=== PATIENT | female | born 1965 | race Hispanic/Latino ===

== ENCOUNTER 2017-03-04 08:09 | Outpatient (CLI) | payer OTHER ==
[2017-03-04] MEDS ORDERED: Lidocaine 4% Topical Sol 50 ML BOT ONE (18:55)
== END 2017-03-04 08:10 | disposition home or self-care (01) ==
LOC: WCC 08:09
PROVIDERS: ATTEND Family Medicine
DX: T81.89XD Other complications of procedures, not elsewhere classified, subsequent encounter (principal)
CPT/HCPCS: 36416; 97605; J2001

== ENCOUNTER 2017-03-04 12:02 | Day surgery (SDC) | payer OTHER ==
[2017-03-04] MEDS ORDERED: PERTUZUMAB IVPB SCH (12:30)
[2017-03-04] MEDS ORDERED: Dexamethasone 10 MG in Sodium Chloride 0.9% 50 ML IVPB SCH (12:30)
[2017-03-04] MEDS ORDERED: Pertuzumab 420 MG in Sodium Chloride 0.9% 250 ML 250 ML IVPB SCH ×3 (12:30)
[2017-03-04] MEDS ORDERED: CARBOPLATIN IVPB SCH ×3 (12:30)
[2017-03-04] MEDS ORDERED: SODIUM CHLORIDE 0.9% IVPB SCH ×9 (12:30)
[2017-03-04] MEDS ORDERED: TRASTUZUMAB IVPB SCH ×3 (12:30)
[2017-03-04] MEDS ORDERED: DOCETAXEL IVPB SCH ×3 (12:30)
[2017-03-04] MEDS ORDERED: SODIUM CHLORIDE IVPB SCH (12:30)
[2017-03-04] MEDS ORDERED: Palonosetron HCl 0.25 MG in Sodium Chloride 0.9% 50 ML IVPB SCH ×3 (12:30)
[2017-03-04] MEDS ORDERED: ADMIXTURE FEE IVPB SCH (12:30)
[2017-03-04 12:42] VITALS: BP 141/67
[2017-03-04] MEDS ORDERED: Sodium Chloride 0.9% 20 ML ONE (13:53)
== END 2017-03-04 16:44 | disposition home or self-care (01) ==
LOC: ONC/OP 12:02
PROVIDERS: ATTEND Internal Medicine Hematology & Oncology
DX: Z51.11 Encounter for antineoplastic chemotherapy (principal); C50.012 Malignant neoplasm of nipple and areola, left female breast; I10 Essential (primary) hypertension; E11.40 Type 2 diabetes mellitus with diabetic neuropathy, unspecified; K21.9 Gastro-esophageal reflux disease without esophagitis; E78.5 Hyperlipidemia, unspecified; M19.90 Unspecified osteoarthritis, unspecified site; F32.9 Major depressive disorder, single episode, unspecified; F41.9 Anxiety disorder, unspecified; Z98.890 Other specified postprocedural states; Z17.1 Estrogen receptor negative status [ER-]; Z78.0 Asymptomatic menopausal state; Z79.84 Long term (current) use of oral hypoglycemic drugs; Z79.1 Long term (current) use of non-steroidal anti-inflammatories (NSAID); Z79.52 Long term (current) use of systemic steroids; Z79.899 Other long term (current) drug therapy; Z87.891 Personal history of nicotine dependence
CPT/HCPCS: 96367; 96413; 96417; A4216; J1100; J1642; J2469; J7050; J9045; J9171; J9306; J9355

== ENCOUNTER 2017-03-07 13:58 | Outpatient (CLI) | payer OTHER | END 2017-03-07 13:59 | disposition home or self-care (01) | LOC: WCC 13:58 | PROVIDERS: ATTEND Family Medicine | DX: T81.89XD Other complications of procedures, not elsewhere classified, subsequent encounter (principal) | CPT/HCPCS: 36415; 80048; 97606 ==

== ENCOUNTER 2017-03-11 10:29 | Outpatient (CLI) | payer OTHER ==
[2017-03-11] MEDS ORDERED: Sodium Chloride 0.9% 15 ML NEB ONE (17:00)
== END 2017-03-11 10:30 | disposition home or self-care (01) ==
LOC: WCC 10:29
PROVIDERS: ATTEND Family Medicine
DX: T81.89XD Other complications of procedures, not elsewhere classified, subsequent encounter (principal)
CPT/HCPCS: 87015; 87045; 87046; 87177; 87324; 87449; 87899; 97606; A4218

== ENCOUNTER 2017-03-14 10:30 | Outpatient (CLI) | payer OTHER | END 2017-03-14 10:31 | disposition home or self-care (01) | LOC: WCC 10:30 | PROVIDERS: ATTEND Family Medicine | DX: T81.89XD Other complications of procedures, not elsewhere classified, subsequent encounter (principal); Z90.2 Acquired absence of lung [part of] | CPT/HCPCS: 97606 ==

== ENCOUNTER 2017-03-15 12:47 | Inpatient (IN) | payer OTHER, SELFPAY ==
[2017-03-15 13:48] LABS: Hematocrit 32.1 % (36.0-47.0); Mean Platelet Volume 9.1 fL (7.4-10.4); Red Blood Cell (RBC) Count 3.44 mill/uL (4.20-5.40); White Blood Cell (WBC) Count 4.6 thou/uL (4.8-10.8)
[2017-03-15 13:52] LABS: Band 12 % (5-11); Neutrophil 8 % (42-75); Polychromasia SLIGHT = 2-3 cells (100X) (0-2/hpf); Reactive Lymphocytes 7 % (0-10); Toxic Granulation SLIGHT; Vacuoles SLIGHT
[2017-03-15 14:01] LABS: ALT (SGPT) 20 U/L (8-55); AST (SGOT) 16 U/L (5-34); Alkaline Phosphatase 71 U/L (40-150); Anion Gap 19 mmol/L (10-20); BUN (Urea Nitrogen) 30 mg/dL (7.0-18.7); Calc. Creatinine Clearance 0 mL/min (70-130); Calcium 8.8 mg/dL (7.8-10.44); Carbon Dioxide 22 mmol/L (22-29); Chloride 101 mmol/L (98-107); Estimated GFR-MDRD 16; Globulin 3.9 g/dL (2.4-3.5); Lipase 9 U/L (8-78); Protein, Total 7.6 g/dL (6.0-8.3)
[2017-03-15] MEDS ORDERED: Ondansetron HCl/PF 4 MG/2 ML Vial ONE (14:46)
[2017-03-15] MEDS ORDERED: Mag-Al 1200 mg/1200 mg/30 ML UDCUP PO PRN (15:41)
[2017-03-15] MEDS ORDERED: Calcium Carbonate 500 MG ChewTAB PO PRN (15:41)
[2017-03-15] MEDS ORDERED: Acetaminophen 325 MG TAB PO PRN (15:41)
[2017-03-15] MEDS ORDERED: Senokot 8.6 MG TAB PO PRN (15:41)
[2017-03-15] MEDS ORDERED: Bisacodyl 5 MG TAB PO PRN (15:41)
[2017-03-15] MEDS ORDERED: Ondansetron HCl/PF 4 MG/2 ML Vial IVP PRN (15:41)
[2017-03-15] MEDS ORDERED: cloNIDine HCl 0.1 MG TAB PO PRN (15:43)
[2017-03-15] MEDS ORDERED: Lorazepam 1 MG TAB PO PRN (15:43)
[2017-03-15] MEDS ORDERED: traMADol HCl 50 MG TAB PO PRN (15:43)
[2017-03-15] MEDS ORDERED: Loratadine 10 MG TAB PO PRN (15:43)
[2017-03-15] MEDS ORDERED: Nitroglycerin 0.4 MG TAB (25 Tab Bottle) SL PRN (15:43)
[2017-03-15] MEDS ORDERED: Diabetic Tussin 200 MG/10 ML UDCUP PO PRN (15:43)
[2017-03-15] MEDS ORDERED: Benzonatate 100 MG CAP PO PRN (15:43)
[2017-03-15] MEDS ORDERED: Dextrose 5% in Water 1,000 ML IV PRN (16:07)
[2017-03-15] MEDS ORDERED: HumaLOG 300 UNITS/3 ML VIAL SC PRN ×2 (16:07)
[2017-03-15] MEDS ORDERED: Dextrose 50% Abboject 50 ML SYRINGE SLOW IVP PRN (16:07)
[2017-03-15] MEDS ORDERED: Fentanyl 100 MCG/2 ML VIAL ONE (16:09)
[2017-03-15] MEDS ORDERED: Diphenoxylate HCl/Atropine Tablet PO PRN (16:18)
[2017-03-15] MEDS ORDERED: Magnesium Sulfate 3 GM in Sodium Chloride 0.9% 100 ML IVPB SCH (16:30)
--- NOTE | 2017-03-15 16:54 | CT ---
NONCONTRAST ENHANCED CT IMAGES ABDOMEN AND PELVIS 03/15/17 HISTORY: Diarrhea. Patient on chemotherapy. Noncontrast enhanced CT images of the abdomen and pelvis is obtained. IV and oral contrast is not given. The lung bases are unremarkable. The liver, spleen, pancreas, adrenal glands and kidneys are unremarkable. The gallbladder has been s urgically removed. There is approximately 5 mm nonobstructing calculus in the lower pole of the right kidney. Right sided gonadal vein phleboliths are seen. No evidence of obstructing ureteral calculi seen. Small bowel loops are unremarkable. A normal appendix is seen. The colon is unremarkable. No evidenc e of periaortic lymphadenopathy seen. Small defect seen just to the right of the umbilicus compatible with a small right paraumbilical her jose luis. IMPRESSION: 1. Nonobstructing right renal calculus. 2. Right sided gonadal vein phleboliths. POS: [facility]
[2017-03-15] MEDS: 1/2 NS w/KCL 20 mEq 1,000 ML IV SCH (20:32)
[2017-03-15] MEDS: Ciprofloxacin Lactate/D5W 200 MG in Premix Bag 1 BAG IVPB SCH (20:33)
--- NOTE | 2017-03-15 21:34 | HP ---
DATE OF ADMISSION: 03/15/2017 PRIMARY CARE PHYSICIAN: Lidia Kam NP PRIMARY ONCOLOGIST: Amparo Arteaga M.D. CHIEF COMPLAINT: Diarrhea, vomiting, abdominal pain, and weakness. HISTORY OF PRESENT ILLNESS: Ms. Cuevas is a very pleasant 51-year-old -Citizen Of [place] female with past medical history of invasive ductal breast carcinoma on the left status post resection 12/29/19, currently on chemotherapy, who presented to the emergency room with complaints of severe nausea, vomiting, and diarrhea. History is mainly obtained by the patient herself and electronic medical records have been reviewed. The patient was last admitted to our facility on 01/31/2017 for similar presentation with diarrhea and it was deemed to be secondary to chemotherapy. Workup at that time was negative and she was di scharged on 02/04/2017. At this time, Ms. Cuevas reports that she has received her last round of chemotherapy that was a th ird round about 2 weeks ago. Since then, she has been having lots of diarrhea along with some vomit ing and abdominal cramps. She reports that her diarrhea is so severe that she has no control on it. It is just getting worse. She says that she went to the Oncology Clinic at least 3 times and was resuscitated with fluids and was discharged home. She reports getting a CT scan done earlier this w agdaagux, but does not know the results of that. However, because of persistently severe diarrhea, she h as become very weak and is unable to walk now with severe cramps. She denies any blood per se in he r stools or in her vomitus. She does have some abdominal cramps. She also reports decreased urinat ion and states that she has not had any urination over the last 2 days. She presented to the ER wit h these symptoms. Upon presentation, she was somewhat hypotensive with blood pressure 106/78 and generally ill-appeari ng. Her workup showed severe dehydration and hypokalemia with a potassium of 2.8 and creatinine of 3.14 with baseline creatinine being normal. Her CBC shows WBCs of 4.6, but only 8% neutrophils. Sh lolly has received potassium as well as is receiving fluid boluses with potassium in it at this time. S he is now being admitted for severe dehydration, hypokalemia and severe diarrhea. The patient is also under care of wound care, Dr. Tidwell for wound infection of the left surgical s ite where she has had her lumpectomy done. She currently has a wound VAC on it. She also has a Med iPort on the right upper chest. She denies any fevers, but has been having some chills. She denies any chest pain, shortness of sunil ath, orthopnea or PND. She denies any sick contacts. She denies any hematochezia, melena, or hemet emesis. PAST MEDICAL HISTORY: 1. Invasive ductal carcinoma of the left breast. 2. Paget's disease of the left nipple. She is status post surgical excision of the nipple and areo lar complex of left breast lumpectomy. 3. Left breast wound infection and dehiscent status post wound VAC. 4. Obesity. 5. Hypertension. 6. Diabetes mellitus. 7. Diabetic neuropathy. 8. Gastroesophageal reflux disease. 9. Dyslipidemia. 10. History of iritis. 11. Anxiety and depression. PAST SURGICAL HISTORY: section, colon surgery, left breast lumpectomy and en bloc nipple a nd areolar complex excision 12/28/2016. ALLERGIES: No known medication allergies. FAMILY HISTORY: Significant for breast cancer in great-grandmother. SOCIAL HISTORY: She is and lives in [place], [place]. Former tobacco use. No history of curre nt alcohol or illicit drug use. Formerly worked as a home health care provider. HOME MEDICATIONS: Metformin 500 b.i.d., Glucotrol XL 10 mg b.i.d., pioglitazone 30 mg daily, Toprol -XL 150 mg daily, clonidine 0.2 mg b.i.d., amlodipine 10 mg daily, losartan/hydrochlorothiazide 100/ 12.5 mg daily, Lasix 20 mg daily, gabapentin 300 mg 3 times a day, prednisone 5 mg every other day, Nexium 40 mg daily, Lexapro 20 mg daily, loratadine 10 mg daily, Milk thistle 240 mg daily, folic ac id once daily, potassium chloride 20 mEq daily, potassium 99 mg daily, vitamin D with calcium 1000 u nits daily. The patient reports that she has not been able to take any medication for the last 2 days because of persistent nausea, vomiting, and diarrhea. REVIEW OF SYSTEMS: The following complete review of systems was negative, unless otherwise mentione d in the HPI or below: Constitutional: Weight loss or gain, ability to conduct usual activities. Skin: Rash, itching. Eyes: Double vision, pain. ENT/Mouth: Nose bleeding, neck stiffness, pain, tenderness. Cardiovascular: Palpitations, dyspnea on exertion, orthopnea. Respiratory: Shortness of breath, wheezing, cough, hemoptysis, fever or night sweats. Gastrointestinal: Poor appetite, abdominal pain, heartburn, nausea, vomiting, constipation, or diar collette. Genitourinary: Urgency, frequency, dysuria, nocturia. Musculoskeletal: Pain, swelling. Neurologic/Psychiatric: Anxiety, depression. Allergy/Immunologic: Skin rash, bleeding tendency. It is negative except for those mentioned in the history and physical. LABORATORY DATA: CBC shows WBCs at 4.6, hemoglobin 10.5, hematocrit 32.1, platelet count of 64, annel trophils 8%, bands 12%, lymphocytes 64%. Serum chemistries: Sodium 139, potassium 2.8, BUN 30, cre atinine 3.18, and magnesium 1. Liver enzymes within normal limits. Lipase 9. PHYSICAL EXAMINATION: VITAL SIGNS: Upon presentation include blood pressure 106/78, pulse of 86, oxygen saturation 100% o n room air, respirations 18, and temperature 98.3. GENERAL: She is awake, alert, and oriented x3. She is lying on the side and appears weak and tired , but no acute distress. HEENT: Mucous membranes dry. No oropharyngeal exudate or erythema. Head is normocephalic and atra umatic. Pupils are equal, reactive to light and accommodation. NECK: Supple without any lymphadenopathy, JVD or bruit. CHEST: Clear to auscultation without any wheezing, rales or rhonchi. Wound VAC is noticed on the l eft lateral breast. She has erythema extending beyond the wound VAC on the left breast which correl ates with her history of Paget's disease and invasive ductal carcinoma. CARDIOVASCULAR: Rate and rhythm is regular without any murmur, rubs or gallops. ABDOMEN: Morbidly obese, tender to palpation, nondistended with loud bowel sounds heard. EXTREMITIES: Free of any cyanosis, clubbing, or edema. NEUROLOGIC: Nonfocal. SKIN: Free of any rashes or bruises. Her skin feels dry with some tenting. PSYCHIATRIC: Normal affect. VASCULAR: +2 pedal pulses felt bilaterally. IMPRESSION AND PLAN: 1. Hypovolemic shock. This is secondary to gastrointestinal losses of fluid due to severe diarrhea and vomiting. She will continue to receive IV fluids with potassium and we will monitor clinical s igns and symptoms. Her blood pressure was on the lower side upon presentation and at this time, we will hold all her antihypertensive that she takes at home. This is likely chemotherapy-induced diar collette. Vital signs will be monitored every 4 hours for now. The patient has had decreased urination because of severe dehydration as well. 2. Chemotherapy-induced diarrhea. At this time, we will check a Clostridium difficile and stool st udies to rule out infectious causes. The patient did have a CT scan done as an outpatient, but unfo rtunately I do not have access to her records. At this time, we will repeat the CT scan of the abdo men and pelvis without contrast to rule out colitis urgently. Meanwhile, she will be started on emp iric antibiotics, namely ciprofloxacin and Flagyl for now. We will add Lomotil, Imodium as well as tincture of opium to stop the profuse diarrhea. The patient's condition remains tenuous because of continued diarrhea. 3. Severe hypokalemia and hypomagnesemia. The patient is receiving supplementation. We will watch electrolytes very closely and repeat labs later in the day today and on a daily basis. Supplementa tion as required. She is thankfully hemodynamically stable. 4. Diabetes mellitus type 2. At this time, we will start her on mild insulin sliding scale. Hold all oral hypoglycemic agents. The patient has very poor p.o. intake. We will put her on clear liqu id diet with advance as tolerated. Monitor blood sugar and monitor for chances of hypoglycemia due to poor p.o. intake. 5. Invasive left breast ductal carcinoma, status post resection. We will consult her oncologist in the morning. She will be admitted to Oncology unit and we will start her on neutropenic precaution s. 6. Pancytopenia. This is secondary to chemotherapy. The patient's platelet count is at its lowest so far. Thankfully, she does not have any active bleeding. We will monitor her closely and rechec k labs on a daily basis. 7. History of hypertension. At this time, we will hold her home antihypertensive regimen and monit or clinically. 8. Prophylaxis. Add SCDs and proton pump inhibitor. 9. Code status: FULL CODE. Discussed with the patient. DISPOSITION: The patient is currently being admitted for hypovolemic shock due to chemotherapy-rela latrell diarrhea. Estimated length of stay is at least 2-3 midnights. She is currently hemodynamically stable. Further management will depend upon her clinical course.
[2017-03-15 21:42] LABS: Bilirubin Small (Negative); Glucose, Urine (Dipstick) Negative (Negative); Ketone, Urine Trace mg/dL (Negative); Nitrite Negative (Negative); Protein, Urine (Dipstick) 30 mg/dL (Neg-Trace); Urobilinogen 0.2 mg/dL (0.2-1.0)
[2017-03-15 21:45] LABS: WBC/HPF 21-50 HPF (0-3)
[2017-03-15] MEDS ORDERED: Potassium Chloride 20 MEQ TAB PO SCH (21:45)
[2017-03-15 21:55] LABS: Blood, Urine Trace (Negative)
[2017-03-15 21:56] LABS: Renal Epithelial 0-3 HPF (0-3)
[2017-03-15 21:57] LABS: Bacteria/HPF 2+ HPF (None Seen)
[2017-03-15] MEDS: metroNIDAZOLE 500 MG in Premix Bag 1 BAG IVPB SCH (22:05)
[2017-03-16] MEDS: metroNIDAZOLE 500 MG in Premix Bag 1 BAG IVPB SCH ×3 (05:28→22:16)
[2017-03-16] MEDS: 1/2 NS w/KCL 20 mEq 1,000 ML IV SCH ×3 (05:29→20:54)
[2017-03-16 06:27] LABS: Anion Gap 15 mmol/L (10-20); BUN (Urea Nitrogen) 22 mg/dL (7.0-18.7); Calc. Creatinine Clearance 89 mL/min (70-130); Calcium 8.3 mg/dL (7.8-10.44); Carbon Dioxide 23 mmol/L (22-29); Chloride 103 mmol/L (98-107); Estimated GFR-MDRD 39; Magnesium 1.6 mg/dL (1.6-2.6)
[2017-03-16 07:02] LABS: Band 5 % (5-11); Hematocrit 28.5 % (36.0-47.0); Mean Platelet Volume 8.4 fL (7.4-10.4); Neutrophil 26 % (42-75); Reactive Lymphocytes 1 % (0-10); Red Blood Cell (RBC) Count 3.06 mill/uL (4.20-5.40); White Blood Cell (WBC) Count 4.9 thou/uL (4.8-10.8)
--- NOTE | 2017-03-16 07:48 | RAD ---
ABDOMEN 1 VIEW: HISTORY: Abdominal pain. COMPARISON: 03/15/17. FINDINGS: Bowel gas pattern is nonspecific. Metallic clips overlie the gallbladder fossa. Phleboliths projec t over the pelvis. IMPRESSION: No significant abnormalities are demonstrated. POS: [facility]
[2017-03-16] MEDS ORDERED: Morphine Sulfate 2 MG/ML SYRINGE SLOW IVP SCH (08:15)
[2017-03-16] MEDS: Famotidine/PF 20 mg/2ml Vial SLOW IVP SCH ×2 (08:43→20:09)
[2017-03-16] MEDS ORDERED: FLU VACC QS2017-18 36 mo. & older 0.5 ML SYRINGE IM ONE (09:00)
[2017-03-16] MEDS: Ciprofloxacin Lactate/D5W 200 MG in Premix Bag 1 BAG IVPB SCH ×2 (09:15→20:10)
[2017-03-16] MEDS ORDERED: Potassium Chloride 40 MEQ in Sodium Chloride 0.9% 500 ML IVPB SCH ×4 (09:30)
--- NOTE | 2017-03-16 10:15 | PDOC.PN ---
- Subjective Encounter Start Date: 03/16/17 Encounter Start Time: 10:13 Subjective: feels better.still with loose watery stools.less ferquently. -: feels stronger but some abdominal pain on and off -: no vomiting - Objective MAR Reviewed: Yes Vital Signs & Weight: Vital Signs (12 hours) Temp Pulse Resp BP Pulse Ox 03/16/17 08:00 97.7 F 62 18 126/60 99 03/16/17 04:00 97.9 F 72 14 134/76 96 03/16/17 00:00 62 16 151/65 H 97 Weight Weight 264 lb 8.875 oz Result Diagrams: 03/16/17 05:55 03/16/17 05:55 Additional Labs: Accuchecks 03/16/17 03/15/17 05:54 22:08 POC Glucose 114 H 106 Laboratory Tests 03/15/17 03/15/17 03/15/17 13:16 13:16 13:16 WBC 4.6 L Plt Count 64 L Neutrophils % (Manual) 8 L Potassium 2.8 L* Magnesium 1.0 L 03/15/17 03/16/17 03/16/17 20:24 05:55 05:55 WBC 4.9 Plt Count 44 L Neutrophils % (Manual) 26 L Potassium 2.8 L* 3.3 L Magnesium 1.6 Phys Exam - Physical Examination Constitutional: NAD HEENT: PERRLA, moist MMs, sclera anicteric, oral pharynx no lesions Neck: no nodes, no JVD, supple, full ROM Respiratory: no wheezing, no rales, no rhonchi, clear to auscultation bilateral Cardiovascular: RRR, no significant murmur Gastrointestinal: soft, non-tender, no distention, positive bowel sounds Musculoskeletal: no edema, pulses present Neurological: non-focal, normal sensation, moves all 4 limbs Psychiatric: normal affect, A&O x 3 Skin: no rash Dx/Plan (1) Hypovolemic shock Code(s): R57.1 - HYPOVOLEMIC SHOCK Status: Acute Comment: improved (2) Chemotherapy induced diarrhea Code(s): K52.1 - TOXIC GASTROENTERITIS AND COLITIS; T45.1X5A - ADVERSE EFFECT OF ANTINEOPLASTIC AND IMMUNOSUP DRUGS, INIT Status: Acute Comment: Stool studies pending.On empiric Antibiotics.CT A/P negative for colitis etc (3) Hypokalemia Code(s): E87.6 - HYPOKALEMIA Status: Acute Comment: Cont IVF with Kcl. Replace prn (4) KARUNA (acute kidney injury) Code(s): N17.9 - ACUTE KIDNEY FAILURE, UNSPECIFIED Status: Acute Comment: improving with IVF (5) Dehydration Code(s): E86.0 - DEHYDRATION Status: Acute Comment: Improving with IVF (6) Pancytopenia Code(s): D61.818 - OTHER PANCYTOPENIA Status: Acute Comment: Due to recent chemorx (7) Surgical wound dehiscence Code(s): T81.31XA - DISRUPTION OF EXTERNAL OPERATION (SURGICAL) WOUND, NEC, INIT Status: Chronic Qualifiers: Encounter type: subsequent encounter Qualified Code(s): T81.31XD - Disruption of external operation (surgical) wound, not elsewhere classified, subsequent encounter Comment: Wound Vac in place.Pt follows up with Wound care clinic as an Outpatient (8) Breast cancer Status: Acute Comment: On ChemoRx.Sx done 12/24 - Plan continue antibiotics, PT/OT, social work nurse, out of bed/ambulate, DVT proph w/ SCDs cont IVF with Potassium for now. Cont empiric ABX. -: follow stool studies. unlikley infectious cause .CT A/P normal for that -: Monitor CBC closely .Platelets lower today.Oncology consulted. -: wound care. supportive care.daily labs. Potassium better -: Prn anti diarrheals.BP meds on hold.PRN meds on board for same * . Review of Systems - Review of Systems Constitutional: Weakness, Malaise. negative: Fever, Chills, Sweats, Other Respiratory: negative: Cough, Dry, Shortness of Breath, Hemoptysis, SOB with Excertion, Pleuritic Pain, Sputum, Wheezing Cardiovascular: negative: Chest Pain, Palpitations, Orthopnea, Paroxysmal Noc. Dyspnea, Edema, Light Headedness, Other Gastrointestinal: Abdominal Pain, Diarrhea. negative: Nausea, Vomiting, Constipation, Melena, Hematochezia, Other Genitourinary: negative: Dysuria, Frequency, Incontinence, Hematuria, Retention , Other Musculoskeletal: negative: Neck Pain, Shoulder Pain, Arm Pain, Back Pain, Hand Pain, Leg Pain, Foot Pain, Other Neurological: negative: Weakness, Numbness, Incoordination, Change in Speech, Confusion, Seizures, Other - Medications/Allergies Allergies/Adverse Reactions: Allergies Allergy/AdvReac Type Severity Reaction Status Date / Time No Known Allergies Allergy Verified 01/10/17 16:01 Medications: Current Medications Acetaminophen (Tylenol) 650 mg PO Q4H PRN PRN Reason: Headache/Fever or Pain Hydrocodone Bitart/Acetaminophen ([place]ou[place] 5/325) 1 tab PO Q4H PRN PRN Reason: Moderate Pain (4-6) Al Hydroxide/Mg Hydroxide (Maalox) 30 ml PO Q6H PRN PRN Reason: Heartburn or Indigestion Benzonatate (Tessalon) 100 mg PO Q4H PRN PRN Reason: Cough Bisacodyl (Dulcolax) 10 mg PO DAILYPRN PRN PRN Reason: Constipation Calcium Carbonate (Tums) 1,000 mg PO Q4H PRN PRN Reason: Heartburn or Indigestion Clonidine HCl (Catapres) 0.1 mg PO Q4H PRN PRN Reason: Systolic BP > 160 Dextrose/Water (Dextrose 50%) 25 gm SLOW IVP PRN PRN PRN Reason: Hypoglycemia Diphenoxylate HCl/Atropine (Lomotil) 1 tab PO Q6H PRN PRN Reason: Diarrhea/Loose Stools Last Admin: 03/16/17 09:13 Dose: 1 tab Famotidine (Pepcid) 20 mg SLOW IVP BID [facility] Last Admin: 03/16/17 08:43 Dose: 20 mg Glucagon (Glucagon) 1 mg IM PRN PRN PRN Reason: Hypoglycemia Guaifenesin (Robitussin Sf) 200 mg PO Q4H PRN PRN Reason: Cough Hydralazine HCl (Apresoline) 10 mg SLOW IVP Q4H PRN PRN Reason: Systolic BP > 170 Potassium Chloride/Sodium Chloride (1/2 Ns W/Kcl 20 Meq) 1,000 mls @ 100 mls/ hr IV .Q10H [facility] Last Admin: 03/16/17 05:29 Dose: 1,000 mls Dextrose/Water (D5w) 1,000 mls @ 0 mls/hr IV .Q0M PRN; As Directed PRN Reason: Hypoglycemia Ciprofloxacin/Dextrose 200 mg/ (Device) 100 mls @ 100 mls/hr IVPB Q12HR [facility] Last Admin: 03/16/17 09:15 Dose: 100 mls Metronidazole 500 mg/ Device 100 mls @ 100 mls/hr IVPB Q8HR [facility] Last Admin: 03/16/17 05:28 Dose: 100 mls Potassium Chloride 40 meq/ (Sodium Chloride) 520 mls @ 130 mls/hr IVPB 0930 [facility] Stop: 03/16/17 13:29 Insulin Human Lispro (Humalog) 0 units SC .MILD SLIDING SCALE PRN PRN Reason: Mild Correctional Scale Insulin Human Lispro (Humalog) 0 units SC .BEDTIME SLIDING SC PRN PRN Reason: Bedtime Correctional Scale Loperamide HCl (Imodium) 1 mg PO Q4H PRN PRN Reason: Diarrhea/Loose Stools Loratadine (Claritin) 10 mg PO DAILYPRN PRN PRN Reason: Sinus Symptoms Lorazepam (Ativan) 1 mg PO Q4H PRN PRN Reason: Anxiety/Agitation Morphine Sulfate (Morphine Sulfate) 2 mg SLOW IVP 0815 [facility] Stop: 03/16/17 10:15 Last Admin: 03/16/17 08:38 Dose: 2 mg Nitroglycerin (Nitrostat) 0.4 mg SL Q5MIN PRN PRN Reason: Chest Pain Ondansetron HCl (Zofran) 4 mg IVP Q6H PRN PRN Reason: Nausea/Vomiting Opium Tincture (Opium Tincture 10%) 0.6 ml PO QID PRN PRN Reason: Diarrhea/Loose Stools Senna (Senokot) 2 tab PO HSPRN PRN PRN Reason: Constipation Sodium Chloride (Flush - Normal Saline) 10 ml IVF Q12HR [facility] Last Admin: 03/16/17 09:15 Dose: 10 ml Sodium Chloride (Flush - Normal Saline) 10 ml IVF PRN PRN PRN Reason: Saline Flush Tramadol HCl (Ultram) 50 mg PO Q4H PRN PRN Reason: Moderate Pain (4-6)
--- NOTE | 2017-03-16 13:23 | CON ---
DATE OF CONSULTATION: 03/16/2017 REASON FOR CONSULTATION: Breast cancer, on chemotherapy. HISTORY OF PRESENT ILLNESS: Ms. Cuevas is an unfortunate 51-year-old female who was diagnosed with invasive ductal carcinoma of the left breast. It was ER/MO negative, HER-2 positive. She had a se cond primary found at the time of surgery, she also had DCIS and Paget disease of her left nipple. She was started on treatment with Perjeta, Taxotere, carboplatin and Herceptin. After her first aric atment, she required hospitalization for severe diarrhea. She did have a dose reduction; however, d iarrhea continued. Her last dose was on 03/04. Since that time, she has come to the clinic multipl e times for IV fluids secondary to dehydration. Yesterday, she called the clinic with a significant change in her weakness. She was sent to the ER for evaluation. In the emergency room, she was hyp okalemic with a potassium of 2.8. Her creatinine was elevated at 3.14. She was admitted for dehydr ation and hypokalemia. Her Lomotil and Imodium were continued and she was started on tincture of op ium. She continues to have diarrhea and abdominal pain. Denies any shortness of breath, chest pain or dizziness. She denies any blood in her stool. PAST MEDICAL HISTORY: 1. Left breast cancer. 2. Diabetes mellitus 2. 3. Hypertension. 4. Diabetic neuropathy. 5. Arthritis. 6. Morbid obesity. 7. Gastroesophageal reflux disease. 8. Hyperlipidemia. 9. Arthritis. 10. Anxiety and depression. PAST SURGICAL HISTORY: 1. Cholecystectomy. 2. Prior . 3. Left breast lumpectomy with nipple excision. ALLERGIES: No known drug allergies. HOME MEDICATIONS: 1. Amlodipine 10 mg daily. 2. Clonidine 0.2 mg b.i.d. 3. Folic acid 800 mg daily. 4. Lasix 20 mg daily. 5. Glucotrol XL 10 mg b.i.d. 6. Hydrocodone 5/325 p.r.n. 7. Lexapro 20 mg daily. 8. Losartan/hydrochlorothiazide daily. 9. Metformin b.i.d. 500 mg. 10. Nexium 40 mg daily. 11. Pioglitazone 30 mg daily. 12. Potassium 99 mg daily. 13. Prednisone 5 mg every other day. 14. Metoprolol XL 150 mg daily. 15. Lomotil p.r.n. 16. Imodium p.r.n. FAMILY HISTORY: Great grandmother had breast cancer. SOCIAL HISTORY: , one child. Lives with her ex- and son. She is a former smoker. No alcohol or illicit drug use. REVIEW OF SYSTEMS: Twelve-point review of systems is negative except for noted in HPI. PHYSICAL EXAMINATION: VITAL SIGNS: Temperature is 98.4, pulse 63, respiratory rate 18 and BP is 119/56. She is 99% on ro om air. GENERAL: A well-developed and well-nourished female in no acute distress. HEENT: Normocephalic and atraumatic. Pupils are equal and reactive to light. NECK: Supple. CARDIOVASCULAR: Regular rate and rhythm. LUNGS: Clear to auscultation. ABDOMEN: Obese, mildly tender to palpation. Bowel sounds are positive. EXTREMITIES: No clubbing, cyanosis or edema. SKIN: She has a left breast wound VAC in place with erythema. NEUROLOGIC: Nonfocal. PSYCHIATRIC: The patient is alert and oriented and appropriate. PERTINENT LABORATORY AND X-RAYS: Current WBCs are 4.9, hemoglobin 9.4, hematocrit 28.5, platelet co unt is 44,000, 26% neutrophils, 5% bands, 55% lymphocytes and 13% monocytes. Sodium 138, potassium 3.3, chloride 103, CO2 is 23, BUN is 22, creatinine 1.44, calcium is 8.3, magnesium 1.6 and total bi lirubin is 1. AST 16, ALT 20 and alkaline phosphatase is 71. Serum total protein is 7.6, albumin i s 3.7, globulin is 3.9 and lipase is 9. Urine had 2+ bacteria. Abdominal and pelvis CT showed no a cute process. Abdominal x-ray showed no significant abnormalities. ASSESSMENT: 1. Invasive ductal carcinoma of the left breast, ER/MO negative, HER-2 positive, on chemotherapy. 2. Severe diarrhea. 3. Dehydration. 4. Hypokalemia. 5. Paget disease of the left nipple with wound VAC placement. DISCUSSION: The patient is currently receiving IV fluids. Her potassium is being repleted. She is on antidiarrheals including tincture of opium. Her white count has improved. Her platelet count i s 44,000, which is the lowest ever been even during all 3 courses of chemotherapy. Unsure of the et iology, it may be consumptive. We would just continue to monitor her CBC. If she does not improve over the weekend, we will have GI consult on Saturday for further assistance.
[2017-03-16] MEDS: predniSONE 5 MG TAB PO SCH (14:04)
[2017-03-16] MEDS: Gabapentin 300 MG CAP PO SCH ×2 (14:04→20:09)
[2017-03-16] MEDS: Opium Tincture 10% (1ml Charge) PO PRN (18:19)
[2017-03-16] MEDS: Escitalopram Oxalate 10 mg Tablet PO SCH (20:09)
[2017-03-17] MEDS: 1/2 NS w/KCL 20 mEq 1,000 ML IV SCH ×2 (03:25→17:14)
[2017-03-17] MEDS: metroNIDAZOLE 500 MG in Premix Bag 1 BAG IVPB SCH ×3 (05:14→22:40)
[2017-03-17 07:20] LABS: Anion Gap 9 mmol/L (10-20); BUN (Urea Nitrogen) 14 mg/dL (7.0-18.7); Calc. Creatinine Clearance 149 mL/min (70-130); Calcium 8.2 mg/dL (7.8-10.44); Carbon Dioxide 25 mmol/L (22-29); Chloride 107 mmol/L (98-107); Estimated GFR-MDRD 66
[2017-03-17 07:22] LABS: Band 12 % (5-11); Hematocrit 25.5 % (36.0-47.0); Mean Platelet Volume 10.1 fL (7.4-10.4); Neutrophil 29 % (42-75); Red Blood Cell (RBC) Count 2.73 mill/uL (4.20-5.40)
[2017-03-17] MEDS: Folic Acid 1 MG TAB PO SCH (08:16)
[2017-03-17] MEDS: Gabapentin 300 MG CAP PO SCH ×3 (08:16→21:08)
[2017-03-17] MEDS: Famotidine/PF 20 mg/2ml Vial SLOW IVP SCH ×2 (08:17→21:09)
[2017-03-17] MEDS: Ciprofloxacin Lactate/D5W 200 MG in Premix Bag 1 BAG IVPB SCH ×2 (08:53→21:08)
--- NOTE | 2017-03-17 09:33 | PDOC.PN ---
- Subjective Encounter Start Date: 03/17/17 Encounter Start Time: 09:32 Subjective: feels better. diarrhea slowing down.abd pain better -: no vomiting - Objective MAR Reviewed: Yes Vital Signs & Weight: Vital Signs (12 hours) Pulse BP 03/17/17 08:54 60 185/78 H Weight Admit Weight 264 lb Weight 278 lb 7.101 oz I&O: 03/16/17 03/17/17 03/18/17 06:59 06:59 06:59 Intake Total 2840 Output Total 1 Balance 2839 Result Diagrams: 03/17/17 06:36 03/17/17 06:36 Additional Labs: Accuchecks 03/17/17 03/16/17 03/16/17 05:13 20:16 16:36 POC Glucose 126 H 223 H 125 H 03/16/17 11:01 POC Glucose 179 H Microbiology 03/16/17 19:20 Stool Stool Lactoferrin - Final 03/16/17 19:20 Stool Escherichia coli 0157 Culture - Final 03/16/17 19:20 Stool Campylobacter Antigen Assay - Final 03/16/17 19:20 Stool Shiga Toxin Test - Final 03/16/17 19:20 Stool C. difficile GDH Antigen & Toxins - Final Laboratory Tests 03/15/17 03/16/17 03/17/17 13:16 05:55 06:36 WBC 4.6 L 4.9 4.0 L Hgb 10.5 L 9.4 L 8.4 L Plt Count 64 L 44 L 31 L Phys Exam - Physical Examination Constitutional: NAD HEENT: PERRLA, moist MMs, sclera anicteric, oral pharynx no lesions Neck: no nodes, no JVD, supple, full ROM Respiratory: no wheezing, no rales, no rhonchi, clear to auscultation bilateral Cardiovascular: RRR, no significant murmur, no rub, gallop Gastrointestinal: soft, non-tender, no distention, positive bowel sounds Musculoskeletal: no edema, pulses present Neurological: non-focal, normal sensation, moves all 4 limbs Psychiatric: normal affect, A&O x 3 Skin: no rash Dx/Plan (1) Hypovolemic shock Code(s): R57.1 - HYPOVOLEMIC SHOCK Status: Resolved Comment: improved (2) Chemotherapy induced diarrhea Code(s): K52.1 - TOXIC GASTROENTERITIS AND COLITIS; T45.1X5A - ADVERSE EFFECT OF ANTINEOPLASTIC AND IMMUNOSUP DRUGS, INIT Status: Acute Comment: Stool studies pending.On empiric Antibiotics.CT A/P negative for colitis etc (3) Hypokalemia Code(s): E87.6 - HYPOKALEMIA Status: Acute Comment: Cont IVF with Kcl. Replace prn (4) KARUNA (acute kidney injury) Code(s): N17.9 - ACUTE KIDNEY FAILURE, UNSPECIFIED Status: Acute Comment: improving with IVF (5) Dehydration Code(s): E86.0 - DEHYDRATION Status: Acute Comment: Improving with IVF (6) Pancytopenia Code(s): D61.818 - OTHER PANCYTOPENIA Status: Acute Comment: Due to recent chemorx (7) Surgical wound dehiscence Code(s): T81.31XA - DISRUPTION OF EXTERNAL OPERATION (SURGICAL) WOUND, NEC, INIT Status: Chronic Qualifiers: Encounter type: subsequent encounter Qualified Code(s): T81.31XD - Disruption of external operation (surgical) wound, not elsewhere classified, subsequent encounter Comment: Wound Vac in place.Pt follows up with Wound care clinic as an Outpatient (8) Breast cancer Status: Acute Comment: On ChemoRx.Sx done 12/24 - Plan continue antibiotics, PT/OT, out of bed/ambulate, DVT proph w/SCDs Clincally better. cont IVF w Potassium.supplement K this am IV as well. -: C.Diff negative.Taper antibiotics as no colitis on CT either. -: Cr normalized.Monitor platelets. No Pharmacological DVt prophylaxis. -: WBC/ANC improved and better.off of neutropenic precautions.Monitor. -: Oncology following.Appreciate input.ethan ABBOTT in next 24 hours. * . Review of Systems - Review of Systems Constitutional: Weakness, Malaise Respiratory: negative: Cough, Dry, Shortness of Breath, Hemoptysis, SOB with Excertion, Pleuritic Pain, Sputum, Wheezing Cardiovascular: negative: Chest Pain, Palpitations, Orthopnea, Paroxysmal Noc. Dyspnea, Edema, Light Headedness, Other Gastrointestinal: Diarrhea. negative: Nausea, Vomiting, Abdominal Pain, Constipation, Melena, Hematochezia, Other Genitourinary: negative: Dysuria, Frequency, Incontinence, Hematuria, Retention , Other Musculoskeletal: negative: Neck Pain, Shoulder Pain, Arm Pain, Back Pain, Hand Pain, Leg Pain, Foot Pain, Other Neurological: negative: Weakness, Numbness, Incoordination, Change in Speech, Confusion, Seizures, Other - Medications/Allergies Allergies/Adverse Reactions: Allergies Allergy/AdvReac Type Severity Reaction Status Date / Time No Known Allergies Allergy Verified 01/10/17 16:01 Medications: Current Medications Acetaminophen (Tylenol) 650 mg PO Q4H PRN PRN Reason: Headache/Fever or Pain Hydrocodone Bitart/Acetaminophen ([place] 5/325) 1 tab PO Q4H PRN PRN Reason: Moderate Pain (4-6) Al Hydroxide/Mg Hydroxide (Maalox) 30 ml PO Q6H PRN PRN Reason: Heartburn or Indigestion Amlodipine Besylate (Norvasc) 10 mg PO DAILY [facility] Last Admin: 03/17/17 08:54 Dose: 10 mg Benzonatate (Tessalon) 100 mg PO Q4H PRN PRN Reason: Cough Bisacodyl (Dulcolax) 10 mg PO DAILYPRN PRN PRN Reason: Constipation Calcium Carbonate (Tums) 1,000 mg PO Q4H PRN PRN Reason: Heartburn or Indigestion Clonidine HCl (Catapres) 0.1 mg PO Q4H PRN PRN Reason: Systolic BP > 160 Dextrose/Water (Dextrose 50%) 25 gm SLOW IVP PRN PRN PRN Reason: Hypoglycemia Diphenoxylate HCl/Atropine (Lomotil) 1 tab PO Q6H PRN PRN Reason: Diarrhea/Loose Stools Last Admin: 03/16/17 09:13 Dose: 1 tab Escitalopram Oxalate (Lexapro) 20 mg PO HS [facility] Last Admin: 03/16/17 20:09 Dose: 20 mg Famotidine (Pepcid) 20 mg SLOW IVP BID [facility] Last Admin: 03/17/17 08:17 Dose: 20 mg Folic Acid (Folvite) 1 mg PO DAILY [facility] Last Admin: 03/17/17 08:16 Dose: 1 mg Gabapentin (Neurontin) 300 mg PO TID [facility] Last Admin: 03/17/17 08:16 Dose: 300 mg Glucagon (Glucagon) 1 mg IM PRN PRN PRN Reason: Hypoglycemia Guaifenesin (Robitussin Sf) 200 mg PO Q4H PRN PRN Reason: Cough Hydralazine HCl (Apresoline) 10 mg SLOW IVP Q4H PRN PRN Reason: Systolic BP > 170 Potassium Chloride/Sodium Chloride (1/2 Ns W/Kcl 20 Meq) 1,000 mls @ 100 mls/ hr IV .Q10H [facility] Last Admin: 03/17/17 03:25 Dose: 1,000 mls Dextrose/Water (D5w) 1,000 mls @ 0 mls/hr IV .Q0M PRN; As Directed PRN Reason: Hypoglycemia Ciprofloxacin/Dextrose 200 mg/ (Device) 100 mls @ 100 mls/hr IVPB Q12HR [facility] Last Admin: 03/17/17 08:53 Dose: 100 mls Metronidazole 500 mg/ Device 100 mls @ 100 mls/hr IVPB Q8HR [facility] Last Admin: 03/17/17 05:14 Dose: 100 mls Potassium Chloride 40 meq/ (Device) 100 mls @ 25 mls/hr IVPB ONE [facility] Insulin Human Lispro (Humalog) 0 units SC .MILD SLIDING SCALE PRN PRN Reason: Mild Correctional Scale Insulin Human Lispro (Humalog) 0 units SC .BEDTIME SLIDING SC PRN PRN Reason: Bedtime Correctional Scale Loperamide HCl (Imodium) 1 mg PO Q4H PRN PRN Reason: Diarrhea/Loose Stools Last Admin: 03/17/17 08:16 Dose: 1 mg Loratadine (Claritin) 10 mg PO DAILYPRN PRN PRN Reason: Sinus Symptoms Lorazepam (Ativan) 1 mg PO Q4H PRN PRN Reason: Anxiety/Agitation Nitroglycerin (Nitrostat) 0.4 mg SL Q5MIN PRN PRN Reason: Chest Pain Ondansetron HCl (Zofran) 4 mg IVP Q6H PRN PRN Reason: Nausea/Vomiting Opium Tincture (Opium Tincture 10%) 0.6 ml PO QID PRN PRN Reason: Diarrhea/Loose Stools Last Admin: 03/16/17 18:19 Dose: 0.6 ml Pantoprazole Sodium (Protonix) 40 mg PO DAILY [facility] Last Admin: 03/17/17 08:17 Dose: 40 mg Prednisolone Acetate (Econopred Plus 1% Opth Susp) 1 drop R EYE DAILY [facility] Prednisone (Prednisone) 7.5 mg PO Q2D@1200 [facility] Last Admin: 03/16/17 14:04 Dose: 7.5 mg Senna (Senokot) 2 tab PO HSPRN PRN PRN Reason: Constipation Sodium Chloride (Flush - Normal Saline) 10 ml IVF Q12HR [facility] Last Admin: 03/17/17 09:04 Dose: 10 ml Sodium Chloride (Flush - Normal Saline) 10 ml IVF PRN PRN PRN Reason: Saline Flush Tramadol HCl (Ultram) 50 mg PO Q4H PRN PRN Reason: Moderate Pain (4-6)
[2017-03-17] MEDS ORDERED: Potassium Chloride 40 MEQ in Sodium Chloride 0.9% 500 ML IVPB SCH ×2 (09:45→10:30)
[2017-03-17] MEDS: prednisoLONE 1% Ophth Susp 5 ml Bottle R EYE SCH (12:04)
[2017-03-17] MEDS: Opium Tincture 10% (1ml Charge) PO PRN ×2 (12:04→19:31)
[2017-03-17] MEDS: Escitalopram Oxalate 10 mg Tablet PO SCH (21:08)
[2017-03-18] MEDS: 1/2 NS w/KCL 20 mEq 1,000 ML IV SCH ×2 (02:02→16:03)
[2017-03-18] MEDS: Opium Tincture 10% (1ml Charge) PO PRN ×4 (02:03→23:04)
[2017-03-18] MEDS: metroNIDAZOLE 500 MG in Premix Bag 1 BAG IVPB SCH ×3 (05:55→22:31)
[2017-03-18 06:32] LABS: Anion Gap 10 mmol/L (10-20); BUN (Urea Nitrogen) 8 mg/dL (7.0-18.7); Calc. Creatinine Clearance 161 mL/min (70-130); Calcium 8.2 mg/dL (7.8-10.44); Carbon Dioxide 23 mmol/L (22-29); Chloride 110 mmol/L (98-107); Estimated GFR-MDRD 72; Magnesium 1.1 mg/dL (1.6-2.6)
[2017-03-18 07:03] LABS: Band 4 % (5-11); Mean Platelet Volume 10.1 fL (7.4-10.4); Neutrophil 39 % (42-75); Reactive Lymphocytes 3 % (0-10); Red Blood Cell (RBC) Count 2.66 mill/uL (4.20-5.40); White Blood Cell (WBC) Count 4.4 thou/uL (4.8-10.8)
[2017-03-18] MEDS ORDERED: Magnesium Sulfate 4 GM, Admixture Fee 1 EACH in Sodium Chloride 0.9% 250 ML 250 ML IVPB SCH (07:45)
[2017-03-18] MEDS: Potassium Chloride 20 MEQ TAB PO SCH ×3 (09:08→16:00)
[2017-03-18] MEDS: Gabapentin 300 MG CAP PO SCH ×3 (09:09→21:14)
[2017-03-18] MEDS: Folic Acid 1 MG TAB PO SCH (09:09)
[2017-03-18] MEDS: Ciprofloxacin Lactate/D5W 200 MG in Premix Bag 1 BAG IVPB SCH ×2 (09:09→21:15)
[2017-03-18] MEDS: prednisoLONE 1% Ophth Susp 5 ml Bottle R EYE SCH (09:14)
[2017-03-18] MEDS: Famotidine/PF 20 mg/2ml Vial SLOW IVP SCH ×2 (09:15→21:11)
[2017-03-18] MEDS ORDERED: Lidocaine 4% Topical Sol 50 ML BOT TOP PRN (10:08)
--- NOTE | 2017-03-18 10:31 | PDOC.PN ---
- Subjective Encounter Start Date: 03/18/17 Encounter Start Time: 10:00 -: old records requested/rev Pt seen and examined on rounds, chart reviewed in its entirety. This is my first visit with this patient. No f/c, no N/V since admit. appetite poor due to tast issues. diarrhea continues, seems worse today with three episodes already. getting tincture of opium. No blood. nosebleed earlier with soiling of her shirt and sheets, some perineal bleeding, nursing unable to see any obviosu source. no CP or SOB. 10 point ROs performed and neg for all systems except as above - Objective Resuscitation Status: Full MAR Reviewed: Yes Vital Signs & Weight: Vital Signs (12 hours) Temp Pulse Resp BP BP BP Pulse Ox 03/18/17 09:10 134/67 03/18/17 09:09 76 134/67 03/18/17 07:53 97.1 F L 76 18 134/67 97 03/18/17 02:18 89 152/66 H 03/18/17 01:26 84 115/79 Weight Admit Weight 264 lb Weight 280 lb 6.848 oz I&O: 03/17/17 03/18/17 03/19/17 06:59 06:59 06:59 Intake Total 2840 2101 Output Total 1 Balance 2839 2101 Result Diagrams: 03/18/17 05:00 03/18/17 05:00 Additional Labs: Accuchecks 03/18/17 03/17/17 03/17/17 05:42 20:21 17:14 POC Glucose 149 H 200 H 190 H 03/17/17 12:09 POC Glucose 141 H Radiology Reviewed by me: Yes EKG Reviewed by me: Yes Phys Exam - Physical Examination Constitutional: NAD HEENT: PERRLA, moist MMs, sclera anicteric, oral pharynx no lesions Neck: no nodes, no JVD, supple, full ROM Respiratory: no wheezing, no rales, no rhonchi, clear to auscultation bilateral Cardiovascular: RRR, no significant murmur, no rub Gastrointestinal: soft, non-tender, no distention, positive bowel sounds Musculoskeletal: no edema, pulses present Neurological: non-focal, normal sensation, moves all 4 limbs Lymphatic: no nodes Psychiatric: normal affect, A&O x 3 Skin: no rash, normal turgor, cap refill <2 seconds Dx/Plan (1) Hypomagnesemia Code(s): E83.42 - HYPOMAGNESEMIA Status: Acute Comment: 1.1 replace. recheck this afternoon. (2) KARUNA (acute kidney injury) Code(s): N17.9 - ACUTE KIDNEY FAILURE, UNSPECIFIED Status: Resolved Comment : improving with IVF (3) Chemotherapy induced diarrhea Code(s): K52.1 - TOXIC GASTROENTERITIS AND COLITIS; T45.1X5A - ADVERSE EFFECT OF ANTINEOPLASTIC AND IMMUNOSUP DRUGS, INIT Status: Acute Comment: Stool studies pending.On empiric Antibiotics.CT A/P negative for colitis etc (4) Pancytopenia Code(s): D61.818 - OTHER PANCYTOPENIA Status: Acute Comment: Due to recent chemorx (5) Hypovolemic shock Code(s): R57.1 - HYPOVOLEMIC SHOCK Status: Resolved Comment: improved (6) Breast cancer Status: Chronic Qualifiers: Breast location: unspecified site of breast Estrogen receptor status: unspecified Patient sex: female Laterality: unspecified laterality Qualified Code(s): C50.919 - Malignant neoplasm of unspecified site of unspecified female breast Comment: On ChemoRx.Sx done 12/24 (7) Dehydration Code(s): E86.0 - DEHYDRATION Status: Resolved Comment: Improving with IVF (8) Hypokalemia Code(s): E87.6 - HYPOKALEMIA Status: Acute Comment: Cont IVF with Kcl. Replace prn - Plan cont current plan of care * . thrombocytopenic - with bleeding form nose, perineum. Will discuss with onc utility of platelet transfusion
[2017-03-18] MEDS: predniSONE 5 MG TAB PO SCH (11:26)
[2017-03-18] MEDS: HYDROcodone/Acetaminophen 5/325 mg Tablet PO PRN (16:00)
[2017-03-18] MEDS: Escitalopram Oxalate 10 mg Tablet PO SCH (21:14)
[2017-03-19 05:04] LABS: #Basophils 0.1 thou/uL (0.0-0.2); #Lymphocytes 2.1 thou/uL (1.20-3.40); #Monocytes 0.6 thou/uL (0.11-0.59); #Neutrophils 1.5 thou/uL (1.40-6.50); %Basophils 2.1 % (0.0-1.0); %Eosinophils 0.3 % (0.0-10.0); %Lymphocytes 49.7 % (21.0-51.0); %Monocytes 13.4 % (0.0-10.0); Hematocrit 24.7 % (36.0-47.0); Mean Platelet Volume 7.2 fL (7.4-10.4); Red Blood Cell (RBC) Count 2.61 mill/uL (4.20-5.40); White Blood Cell (WBC) Count 4.3 thou/uL (4.8-10.8)
[2017-03-19 05:21] LABS: Anion Gap 10 mmol/L (10-20); BUN (Urea Nitrogen) 6 mg/dL (7.0-18.7); Calc. Creatinine Clearance 161 mL/min (70-130); Calcium 8.5 mg/dL (7.8-10.44); Carbon Dioxide 22 mmol/L (22-29); Chloride 112 mmol/L (98-107); Estimated GFR-MDRD 72; Magnesium 1.4 mg/dL (1.6-2.6)
[2017-03-19] MEDS: 1/2 NS w/KCL 20 mEq 1,000 ML IV SCH ×3 (06:01→19:25)
--- NOTE | 2017-03-19 06:15 | CON ---
DATE OF CONSULTATION: 03/18/2017 REFERRING PHYSICIAN: Yaz Parrish MD - Terri Kelly, DAMIAN. REASON FOR CONSULTATION: Severe diarrhea, abdominal cramping, nausea, and vomiting. HISTORY OF PRESENT ILLNESS: Ms. Nava Cuevas is a very pleasant 51-year-old -[place]aur[place] fe male who was diagnosed with breast cancer in 10/2016. 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 She underwent recent nipple removal and removal of the 2 breast m asses. She was seen by Dr. Santacruz and has had a MediPort catheter placement in the early part of 01/2017. She has undergone 3 cycles of chemotherapy since 01/2017. Before chemotherapy, she had no GI symptoms. After the first chemotherapy, she started having severe diarrhea, abdominal cramping, nausea, and vomiting. She was hospitalized in January 2017 and was treated symptomatically. At that time, her stool studies came back negative for any pathology. It was felt that the patient mostly has the symptoms because of the chemotherapy. Apparently, chemotherapy dose was cut down to one fabian f. The patient received chemotherapy 2 weeks ago. Her diarrhea started getting worse again. She w as having watery stools about 10-12 stools per day. She was also having abdominal cramping, nausea, and vomiting. The patient has had stool studies done for ova and parasites, culture, and C. diffic ile, all came back negative. The patient has been receiving Lomotil and Imodium without any symptom atic improvement. Yesterday, she was started on tincture of opium 0.6 mL four times a day. Her pinky rrheal frequency has markedly reduced today. She has had only 3 or 4 stools over the last 24 hours. The stools remained watery. She has had mild hematochezia off and on such as the onset of diarrhe al illness about 2 months ago. The patient was found to have thrombocytopenia with platelet count o f 25,000 today. She has been transfused with platelets today. She appears comfortable. At the pre sent time, no abdominal pain, no nausea, no vomiting anymore. Her appetite remains poor. She has n o relevant history. ALLERGIES: None. MEDICAL ILLNESSES: 1. Breast cancer, status post lumpectomy, status post chemotherapy. 2. Hypertension. 3. Diabetes mellitus. 4. Diabetic neuropathy. 5. Arthritis. 6. Obesity. 7. Chronic acid reflux 8. Hyperlipidemia. 9. Anxiety, depression. SURGERIES: 1. Status post left breast lumpectomy with nipple excision. 2. MediPort catheter placement. 3. Cholecystectomy. 4. . MEDICATIONS: List reviewed which include amlodipine, clonidine, folic acid. Other medicines includ e Lasix, Glucotrol, hydrocodone, Lexapro, losartan, metformin, Nexium, pioglitazone. She is also on prednisone, metoprolol, Lomotil, Imodium, etc. FAMILY HISTORY: Grandmother had breast cancer. SOCIAL HISTORY: The patient is . She does not smoke or drink alcohol anymore. REVIEW OF SYSTEMS: A 10-point system review is remarkable basically for abdominal cramping, nausea, vomiting, diarrhea, hematochezia, poor appetite. PHYSICAL EXAMINATION: GENERAL: The patient appears comfortable. She is awake, alert, and communicative. She is in no di stress. VITAL SIGNS: She is afebrile. Pulse is 73, blood pressure is 138/63. HEENT: Conjunctivae clear. NECK: Supple. No adenitis or thyromegaly noted. CARDIOVASCULAR SYSTEM: First and second heart sounds normal. LUNGS: Clear to auscultation. ABDOMEN: Pendulous and flabby. Abdomen is nontender at the present time. No organomegaly or mackenzie s. Bowel sounds present. EXTREMITIES: Reveal no edema. LABORATORY DATA: The most recent one from this morning, WBC 4400, hemoglobin 8.1, hematocrit 25, pl atelet count 25,000, polymorphs 39, bands 4, lymphocytes 29. Serum chemistries: Sodium 140, potass ium 3.2, chloride 110, bicarbonate 23, BUN is 8, creatinine 0.84, glucose 150, bilirubin 1.1. Stool studies all negative. CLINICAL IMPRESSION: 1. A 51-year-old -[place]aur[place] female with breast cancer, status post chemotherapy. Her symptom s appear to be associated with her chemotherapy. She has no infectious pathology. Since being plac ed on tincture of opium, her diarrheal frequency has come down. 2. Pancytopenia, secondary to chemotherapy. 3. Breast cancer, diagnosed in 10/2016. 4. Diabetes mellitus. 5. Hypertension. 6. Hyperlipidemia. 7. Chronic acid reflux. 8. Depression and anxiety. 9. Diabetic neuropathy. RECOMMENDATIONS: 1. Continue tincture of opium 0.6 mL four times a day. 2. I feel that colonoscopy may not offer any additional information in terms of how to manage the p atient. I strongly feel that her symptoms are most likely from chemotherapy. If the symptoms recur again, consider repeat stool studies.
[2017-03-19] MEDS: Opium Tincture 10% (1ml Charge) PO PRN ×3 (06:25→19:44)
[2017-03-19] MEDS ORDERED: Magnesium 2 GM/NS 0.9% 100 ML 2 GM in Premix Bag 1 BAG IVPB SCH (07:45)
[2017-03-19] MEDS: Gabapentin 300 MG CAP PO SCH ×3 (08:18→21:20)
[2017-03-19] MEDS: Folic Acid 1 MG TAB PO SCH (08:18)
[2017-03-19] MEDS: prednisoLONE 1% Ophth Susp 5 ml Bottle R EYE SCH (08:20)
[2017-03-19] MEDS: Famotidine/PF 20 mg/2ml Vial SLOW IVP SCH ×2 (08:22→21:20)
--- NOTE | 2017-03-19 10:20 | PDOC.PN ---
- Subjective Encounter Start Date: 03/19/17 Encounter Start Time: 10:00 3 BMs bron 0230 to 0900 yesterday, 1 in the afternoon, none overnight, none today yet. urinating okay. No F/C, no V/D, some nausea responsive to Zofran Left breast wound VAC removed yesterday, necrotic and foul smelling. dakins 1/ 4 strength BID ordered, but not available until today. WTD in place. Dr cortez saw earlier, plans bedside debridement tomorrow 10 point ROS performed and neg for all systems except as above - Objective Resuscitation Status: Full MAR Reviewed: Yes Vital Signs & Weight: Vital Signs (12 hours) Temp Pulse Resp BP BP BP Pulse Ox 03/19/17 08:19 69 112/76 03/19/17 08:00 98.5 F 69 16 03/19/17 07:44 98.5 F 69 16 112/76 97 03/18/17 22:30 98.7 F 70 18 116/58 L Weight Admit Weight 264 lb Weight 4.508 oz I&O: 03/18/17 03/19/17 03/20/17 06:59 06:59 06:59 Intake Total 2101 2362 Balance 2101 2362 Result Diagrams: 03/19/17 04:32 03/19/17 04:32 Additional Labs: Accuchecks 03/19/17 03/18/17 03/18/17 05:50 21:28 15:47 POC Glucose 211 H 235 H 215 H 03/18/17 10:48 POC Glucose 195 H Radiology Reviewed by me: Yes EKG Reviewed by me: Yes Phys Exam - Physical Examination Constitutional: NAD HEENT: PERRLA, moist MMs, sclera anicteric, oral pharynx no lesions Neck: no nodes, no JVD, supple, full ROM Respiratory: no wheezing, no rales, no rhonchi, clear to auscultation bilateral Cardiovascular: RRR, no significant murmur, no rub Gastrointestinal: soft, non-tender, no distention, positive bowel sounds Musculoskeletal: no edema, pulses present Neurological: non-focal, normal sensation, moves all 4 limbs Lymphatic: no nodes Psychiatric: normal affect, A&O x 3 Skin: no rash, normal turgor, cap refill <2 seconds Deviation from normal: left breast wound dressed, intact, and not opened or examined at this time Dx/Plan (1) Hypomagnesemia Code(s): E83.42 - HYPOMAGNESEMIA Status: Acute Comment: 1.4 today replace. recheck this afternoon. (2) Chemotherapy induced diarrhea Code(s): K52.1 - TOXIC GASTROENTERITIS AND COLITIS; T45.1X5A - ADVERSE EFFECT OF ANTINEOPLASTIC AND IMMUNOSUP DRUGS, INIT Status: Acute Comment: improved , less frequent BMs. Volume status corrected. contionue tincture of opium (3) Pancytopenia Code(s): D61.818 - OTHER PANCYTOPENIA Status: Acute Comment: Due to recent chemorx. platelets at 45k after transfusion yesterday, no bleeding episodes. WBC and H/H stable (4) Breast cancer Status: Chronic Qualifiers: Breast location: central portion of breast Estrogen receptor status: unspecified Patient sex: female Laterality: left Qualified Code(s): C50.112 - Malignant neoplasm of central portion of left female breast Comment: On ChemoRx.Sx done 12/24 (5) KARUNA (acute kidney injury) Code(s): N17.9 - ACUTE KIDNEY FAILURE, UNSPECIFIED Status: Resolved Comment : improved with IVF (6) Hypokalemia Code(s): E87.6 - HYPOKALEMIA Status: Resolved Comment: Replace prn (7) Dehydration Code(s): E86.0 - DEHYDRATION Status: Resolved Comment: Improving with IVF (8) Hypovolemic shock Code(s): R57.1 - HYPOVOLEMIC SHOCK Status: Resolved Comment: improved - Plan * .
[2017-03-19] MEDS: HYDROcodone/Acetaminophen 5/325 mg Tablet PO PRN ×2 (10:26→14:06)
--- NOTE | 2017-03-19 11:37 | HP ---
HISTORY OF PRESENT ILLNESS: Nava Cuevas has been admitted for complications related to chemoth erapy, mainly nausea, vomiting, diarrhea, and thrombocytopenia. Platelet count was down to 25,000. She is given a pack of platelets, although she does not have any bleeding. Her platelet count is 4 5,000 today. Patient underwent left axillary sentinel node biopsy and lumpectomy, en bloc excision of nipple and areolar complex for her left breast cancer and Paget's disease, 12/28/2016; and on 01/2017, underwent placement of MediPort. Her original pathology biopsy, 12/05/2016, revealed Paget 's disease and nipple extension to the margins, GA and ER negative, and pathology, 12/28/2016, revea led invasive carcinoma of left breast, ER/GA negative, Ki-67 high 59%. 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 All m argins negative. She had a second tumor mass, left breast, extended deep lateral margin, excisional biopsy, all margins negative for invasive ductal carcinoma. First tumor is 1.4 x 1.2 x 1.2 cm, sec ond specimen is 1.6 x 1 x 0.6 cm, [id number]. Patient had a wound problem with some dehiscence of the wound, undergoing wound VAC care as an outpatient. Dr. Santacruz has been seen on the patient wound c are debriding at the bedside and wound care under local anesthetic. There was noted to be some necr otic tissue and wound VAC care was discontinued as an outpatient. I have been asked by the Hospital ist Service to see her this hospitalization regarding concerns for her left breast. Bedside evaluation reveals the wound is healthy, granulating without active infection, although ther e is some necrotic tissue in the superior edge of the open wound. The more medial wound is almost c ompletely healed with some superficial granulation tissue. ALLERGIES: None. SOCIAL HISTORY: Patient is , lives in [place], [place]. She has smoked in the past, but current ly does not smoke. She does not drink alcohol. PAST SURGICAL HISTORY: , colon surgery, left breast surgery as noted above. PAST MEDICAL HISTORY: Left breast cancer, Paget's disease noted above, obesity, hypertension, diabe haroon mellitus, diabetic neuropathy, GERD, dyslipidemia, iritis, anxiety, depression. PHYSICAL EXAMINATION: VITAL SIGNS: 5 foot 6 inches. HEAD, EYES, EARS, NOSE, AND THROAT: Unremarkable. LUNGS: Clear to auscultation. CARDIAC: Regular rate and rhythm without murmur or gallop. ABDOMEN: Obese, soft, nontender. BREASTS: Right breast without masses. Left breast reveals a transverse incision from excision of n ipple areolar complex underlying cancers. There is a superficial granulating area in the medial asp ect of the incision, which is healthy without abscess. There is a deeper wound more lateral incisio n extending about 4 cm deep. On the superior margin, there is some necrotic tissue. There is no pu rulence. There is no infection. The inferior margin is granulating. ASSESSMENT AND PLAN: Open wound left breast, no evidence of infection. We would plan bedside debrmiguel lan tomorrow morning under local anesthetic. We will gather supplies to the bedside and perform this at the bedside. She does not have to be n.p.o. for this. I have offered her to go to the oper ating room, but she prefers bedside debridement.
[2017-03-19] MEDS ORDERED: Lidocaine 1% w/Epinephrine 1:200K 30 ML VIAL FS SCH (15:00)
[2017-03-19] MEDS ORDERED: Bupivacaine PF 0.5% 30 ML VIAL FS SCH (15:00)
[2017-03-19] MEDS ORDERED: Morphine Sulfate 2 MG/ML SYRINGE SLOW IVP PRN (19:40)
[2017-03-19] MEDS: Escitalopram Oxalate 10 mg Tablet PO SCH (21:19)
[2017-03-19] MEDS: Sodium Hypochlorite 0.25% Solution 480 ML BOT TOP SCH (22:03)
--- NOTE | 2017-03-20 00:48 | PRG ---
DATE OF SERVICE: 03/19/2017 HISTORY OF PRESENT ILLNESS: This is a 51-year-old -Swiss female with intractable diarrhea over the last 2 months. The stools are watery. She was having 10-12 stools per day. Her stool st udies were negative. She has no abdominal pain. She was started on tincture of opium on Saturday and her stool frequency is markedly less. She had 4 stools yesterday. Today, she has only 1 s tool and stool is watery. Apparently, her surgical site is infected and plan is being made to debri de the wound by Dr. Draper. PHYSICAL EXAMINATION: GENERAL: The patient is obese, appears comfortable, in no distress. VITAL SIGNS: Stable. Afebrile, pulse is 66, blood pressure 174/79. CARDIOVASCULAR SYSTEM/LUNGS: Within normal limits. ABDOMEN: Soft to palpate. No organomegaly. No tenderness. No masses. LABORATORY DATA: WBC 4300, hemoglobin 8.1, hematocrit 24.7, platelet count is 45,000. RECOMMENDATION: Continue tincture of opium. After 24 hours, reduce tincture of opium to maybe every 12 hours and keep her on it for a while.
[2017-03-20] MEDS: Opium Tincture 10% (1ml Charge) PO PRN (03:59)
[2017-03-20] MEDS: 1/2 NS w/KCL 20 mEq 1,000 ML IV SCH ×2 (05:14→20:52)
[2017-03-20 06:10] LABS: Anion Gap 10 mmol/L (10-20); BUN (Urea Nitrogen) 5 mg/dL (7.0-18.7); Calc. Creatinine Clearance 0 mL/min (70-130); Calcium 8.4 mg/dL (7.8-10.44); Carbon Dioxide 20 mmol/L (22-29); Chloride 113 mmol/L (98-107); Estimated GFR-MDRD 75; Magnesium 1.1 mg/dL (1.6-2.6)
[2017-03-20 06:50] LABS: Anisocytosis SLIGHT = 6-15 cells (100X) (0-5/hpf); Band 1 % (5-11); Hematocrit 25.1 % (36.0-47.0); Neutrophil 22 % (42-75); Reactive Lymphocytes 1 % (0-10); Red Blood Cell (RBC) Count 2.63 mill/uL (4.20-5.40); Tear Drops SLIGHT = 2-5 cells (100X) (0-1/hpf); White Blood Cell (WBC) Count 4.8 thou/uL (4.8-10.8)
[2017-03-20] MEDS ORDERED: Magnesium 2 GM/NS 0.9% 100 ML 4 GM in Premix Bag 1 BAG IVPB SCH (07:30)
[2017-03-20] MEDS ORDERED: Magnesium Sulfate 4 GM, Admixture Fee 1 EACH in Sodium Chloride 0.9% 250 ML 250 ML IVPB SCH (07:45)
[2017-03-20] MEDS: Gabapentin 300 MG CAP PO SCH ×3 (09:08→20:57)
[2017-03-20] MEDS: Folic Acid 1 MG TAB PO SCH (09:08)
[2017-03-20] MEDS: Famotidine/PF 20 mg/2ml Vial SLOW IVP SCH ×2 (09:08→20:56)
--- NOTE | 2017-03-20 09:54 | PDOC.PN ---
- Subjective Encounter Start Date: 03/20/17 Encounter Start Time: 09:30 PT seen and exmained, chart reviewed. Anxious about debridement today. No F/C, no n/V states she had 2 BM between 7a and 7p, not one as documented. none overnight, and had a loose BM about 0900. trace blood. No cough, sputum production or chest pain. Nursign reports PAC not functioning and de-accessed. asking for a port study. 10 point ROS performed and neg for all systems except as above - Objective Resuscitation Status: Full MAR Reviewed: Yes Vital Signs & Weight: Vital Signs (12 hours) Temp Pulse Resp BP BP BP Pulse Ox 03/20/17 09:08 78 174/79 H 03/20/17 08:00 98.7 F 78 16 03/20/17 07:46 98.4 F 78 20 130/66 98 03/20/17 04:00 98.0 F 75 16 125/58 L 96 03/20/17 00:00 98.0 F 77 16 121/59 L 96 Weight Admit Weight 264 lb Weight 4.642 oz I&O: 03/19/17 03/20/17 03/21/17 06:59 06:59 06:59 Intake Total 2362 1676 Balance 2362 1676 Result Diagrams: 03/20/17 05:48 03/20/17 05:48 Additional Labs: Accuchecks 03/20/17 03/19/17 03/19/17 05:47 19:31 16:01 POC Glucose 181 H 176 H 200 H 03/19/17 11:50 POC Glucose 218 H Radiology Reviewed by me: No EKG Reviewed by me: No Phys Exam - Physical Examination Constitutional: NAD HEENT: PERRLA, moist MMs, sclera anicteric, oral pharynx no lesions Neck: no nodes, no JVD, supple, full ROM Respiratory: no wheezing, no rales, no rhonchi, clear to auscultation bilateral Cardiovascular: RRR, no significant murmur, no rub Gastrointestinal: soft, non-tender, no distention, positive bowel sounds Musculoskeletal: no edema, pulses present Neurological: non-focal, normal sensation, moves all 4 limbs Lymphatic: no nodes Psychiatric: normal affect, A&O x 3 Skin: no rash, normal turgor, cap refill <2 seconds Deviation from normal: left breast dressing C/d/I Dx/Plan (1) Hypomagnesemia Code(s): E83.42 - HYPOMAGNESEMIA Status: Acute Comment: 1.1 today replace. recheck this afternoon. replace as needed (2) Chemotherapy induced diarrhea Code(s): K52.1 - TOXIC GASTROENTERITIS AND COLITIS; T45.1X5A - ADVERSE EFFECT OF ANTINEOPLASTIC AND IMMUNOSUP DRUGS, INIT Status: Acute Comment: improved , less frequent BMs. Volume status corrected. continue tincture of opium. apreciate GI recommendations (3) Pancytopenia Code(s): D61.818 - OTHER PANCYTOPENIA Status: Acute Comment: Due to recent chemorx. platelets at 50K today, no bleeding episodes. WBC, H/H stable (4) Breast cancer Status: Chronic Qualifiers: Breast location: central portion of breast Estrogen receptor status: unspecified Patient sex: female Laterality: left Qualified Code(s): C50.112 - Malignant neoplasm of central portion of left female breast Comment: On ChemoRx.Sx done 12/24 (5) KARUNA (acute kidney injury) Code(s): N17.9 - ACUTE KIDNEY FAILURE, UNSPECIFIED Status: Resolved Comment : improved with IVF (6) Hypovolemic shock Code(s): R57.1 - HYPOVOLEMIC SHOCK Status: Resolved Comment: improved (7) Surgical wound dehiscence Code(s): T81.31XA - DISRUPTION OF EXTERNAL OPERATION (SURGICAL) WOUND, NEC, INIT Status: Chronic Qualifiers: Encounter type: subsequent encounter Qualified Code(s): T81.31XD - Disruption of external operation (surgical) wound, not elsewhere classified, subsequent encounter Comment: bedside debridement today. follow up on findings - Plan cont current plan of care * .
--- NOTE | 2017-03-20 12:12 | RAD ---
MEDIPORT CHECK: History: Dysfunction of Mediport. Prior Mediport was leaking. Exposure: 0.8 minutes of fluoroscopic time and 5.778 mGy*cm\S\2. FINDINGS: A Mediport was previously accessed with a Mitchell needle. Contrast was given through the Mitchell needle into the Mediport. Contrast was seen filling the Mediport and the Mediport catheter. There is no erick dence leakage from the catheter and contrast was seen extending into the superior vena cava. After t he contrast was administered, a heparosaline was used to flush the catheter of the contrast. IMPRESSION: Intact Mediport without evidence of abnormality. [place] [facility] [place]
--- NOTE | 2017-03-20 13:44 | OP ---
DATE OF PROCEDURE: 03/20/2017 PREOPERATIVE DIAGNOSES: Open wound, left breast, status post wide local excision of breast cancer, undergoing chemotherapy, open wound. POSTOPERATIVE DIAGNOSES: Open wound, left breast, status post wide local excision of breast cancer, undergoing chemotherapy open wound. No evidence of infection, some desiccated fat superior margin debrided. PROCEDURE: Sharp debridement resectional excisional 10 blade scalpel desiccated fat upper breast, n o purulence, no infection. SURGEON: Rick Draper M.D. ANESTHESIA: 1% Xylocaine with epinephrine, 30 mL, mixed with 0.5% Marcaine without epinephrine, 30 mL 10 mL mixture used. PROCEDURE: At the patient's bedside in her room, her left breast was prepared with Betadine, draped in routine fashion. Local anesthetic infiltrated into skin and subcutaneous tissue about the upper breast wound. This wound is an open wound from resection of her nipple and areolar complex underly ing breast cancers. There is some desiccated fat superiorly, but no purulence, no infection. Using sharp resectional 10 blade scalpel used to excise desiccated breast fat down granulation tissue sup eriorly. Otherwise, the wound is healthy. There is no purulence, no infection. Wound packed tempo rarily until Wound Care arrives to place a wound VAC.
[2017-03-20] MEDS: predniSONE 5 MG TAB PO SCH (14:31)
[2017-03-20] MEDS: Sodium Hypochlorite 0.25% Solution 480 ML BOT TOP SCH (14:33)
[2017-03-20] MEDS ORDERED: Iopamidol 300 61% 30 ML VIAL ONE (16:18)
[2017-03-20] MEDS ORDERED: Activase 2 MG VIAL CATH SCH (17:00)
[2017-03-20] MEDS: prednisoLONE 1% Ophth Susp 5 ml Bottle R EYE SCH (17:36)
[2017-03-20] MEDS: Escitalopram Oxalate 10 mg Tablet PO SCH (20:56)
[2017-03-20] MEDS ORDERED: Opium Tincture 10% (1ml Charge) PO SCH (21:30)
--- NOTE | 2017-03-20 23:19 | PRG ---
DATE OF SERVICE: 03/20/2017 SUBJECTIVE: This is a 51-year-old -Sammar[place] female with breast cancer, status post surgery, undergoing chemotherapy. The patient developed intractable diarrhea over the last couple of months. Her stool studies were negative. She has been getting the tincture of opium and she seems to be r esponding. She had 2 stools this morning and the stools are watery. At present another watery stoo l. She had abdominal cramping. She has also seen some blood in the stool. She underwent debrideme nt of the left breast by Dr. Draper this morning. PHYSICAL EXAMINATION: VITAL SIGNS: She is afebrile, temperature is 98.9 degrees Fahrenheit, pulse is 59, blood pressure 1 40/72. CARDIOVASCULAR SYSTEM: First and second heart sounds normal. LUNGS: Clear to auscultation. ABDOMEN: Soft to palpate. Abdomen is nontender. LABORATORY DATA: Platelet count is 50,000, hemoglobin 8, hematocrit 25.1. Chemistry panel: Sodium 139, potassium 4, chloride 113, bicarbonate 20, BUN is 5, creatinine 0.81. RECOMMENDATIONS: 1. Tincture of opium 0.6 mL p.o. twice a day. 2. Encourage p.o. intake of fluids.
[2017-03-21] MEDS: Sodium Hypochlorite 0.25% Solution 480 ML BOT TOP SCH ×3 (01:53→21:11)
[2017-03-21 05:00] LABS: #Lymphocytes 2.1 thou/uL (1.20-3.40); #Monocytes 0.4 thou/uL (0.11-0.59); %Basophils 0.8 % (0.0-1.0); %Eosinophils 0.6 % (0.0-10.0); %Lymphocytes 46.4 % (21.0-51.0); %Monocytes 9.2 % (0.0-10.0); Hematocrit 22.8 % (36.0-47.0); Mean Platelet Volume 8.5 fL (7.4-10.4); Red Blood Cell (RBC) Count 2.42 mill/uL (4.20-5.40); White Blood Cell (WBC) Count 4.6 thou/uL (4.8-10.8)
[2017-03-21 05:04] LABS: Anion Gap 9 mmol/L (10-20); BUN (Urea Nitrogen) 8 mg/dL (7.0-18.7); Calc. Creatinine Clearance 0 mL/min (70-130); Calcium 8.4 mg/dL (7.8-10.44); Carbon Dioxide 23 mmol/L (22-29); Chloride 110 mmol/L (98-107); Estimated GFR-MDRD 78; Magnesium 1.3 mg/dL (1.6-2.6)
[2017-03-21] MEDS ORDERED: Magnesium Sulfate 4 GM in Sodium Chloride 0.9% 250 ML 250 ML IVPB SCH ×2 (07:45→08:00)
[2017-03-21] MEDS: 1/2 NS w/KCL 20 mEq 1,000 ML IV SCH ×3 (08:17→21:02)
[2017-03-21] MEDS: Gabapentin 300 MG CAP PO SCH ×3 (08:22→21:07)
[2017-03-21] MEDS: Folic Acid 1 MG TAB PO SCH (08:22)
[2017-03-21] MEDS: Famotidine/PF 20 mg/2ml Vial SLOW IVP SCH ×2 (08:22→21:06)
[2017-03-21] MEDS: prednisoLONE 1% Ophth Susp 5 ml Bottle R EYE SCH (08:23)
[2017-03-21] MEDS: Opium Tincture 10% (1ml Charge) PO SCH ×2 (10:21→21:41)
--- NOTE | 2017-03-21 11:41 | PDOC.PN ---
- Subjective Encounter Start Date: 03/21/17 Encounter Start Time: 09:50 Pt seen and exmained on rounds, at the bedside, results, plan, discharge planning discussed. 1 loose BM yesterday, one last evening, none today. no nausea, eating much better. Up with PT yesterday, went almost 60' in the hallway. No bleeding, no CP or SOb, no N/V, VAc tolerated well. PAC study normal, tPA infused and drawinfg flushing great. Pt refusin SSI, asking about restarting diabetic medications. 10 point ROS performed and neg for all systems except as above - Objective Resuscitation Status: Full MAR Reviewed: Yes Vital Signs & Weight: Vital Signs (12 hours) Temp Pulse Resp BP BP Pulse Ox 03/21/17 11:23 98.0 F 63 20 122/62 100 03/21/17 08:21 72 138/63 03/21/17 08:00 97.8 F 72 20 100 03/21/17 07:14 98.6 F 62 20 142/71 H 100 03/21/17 04:00 98.0 F 66 16 114/64 99 03/20/17 23:43 98.0 F 61 16 110/55 L 97 Weight Admit Weight 264 lb Weight 298 lb 8.094 oz I&O: 03/20/17 03/21/17 03/22/17 06:59 06:59 06:59 Intake Total 1676 1300 Balance 1676 1300 Result Diagrams: 03/21/17 04:00 03/21/17 04:00 Additional Labs: Accuchecks 03/21/17 03/21/17 03/20/17 10:57 06:12 19:48 POC Glucose 213 H 244 H 263 H 03/20/17 16:05 POC Glucose 261 H Radiology Reviewed by me: Yes EKG Reviewed by me: Yes Phys Exam - Physical Examination Constitutional: NAD HEENT: PERRLA, moist MMs, sclera anicteric, oral pharynx no lesions Neck: no nodes, no JVD, supple, full ROM Respiratory: no wheezing, no rales, no rhonchi, clear to auscultation bilateral Cardiovascular: RRR, no significant murmur, no rub Gastrointestinal: soft, non-tender, no distention, positive bowel sounds Musculoskeletal: no edema, pulses present Neurological: non-focal, normal sensation, moves all 4 limbs Lymphatic: no nodes Psychiatric: normal affect, A&O x 3 Skin: no rash, normal turgor, cap refill <2 seconds Deviation from normal: VAC intact, PAC site accessed, C/D/I Dx/Plan (1) Hypomagnesemia Code(s): E83.42 - HYPOMAGNESEMIA Status: Acute Comment: 1.3 today replace. recheck this afternoon. replace as needed (2) Chemotherapy induced diarrhea Code(s): K52.1 - TOXIC GASTROENTERITIS AND COLITIS; T45.1X5A - ADVERSE EFFECT OF ANTINEOPLASTIC AND IMMUNOSUP DRUGS, INIT Status: Acute Comment: continuing to improve daily, decreased to opium tincture BID by GI, less frequent BMs. Volume status corrected. continue tincture of opium. appreciate GI recommendations (3) Pancytopenia Code(s): D61.818 - OTHER PANCYTOPENIA Status: Acute Comment: Due to recent chemorx. platelets at 55K today, no bleeding episodes. WBC, H/H stable (4) Breast cancer Status: Chronic Qualifiers: Breast location: central portion of breast Estrogen receptor status: unspecified Patient sex: female Laterality: left Qualified Code(s): C50.112 - Malignant neoplasm of central portion of left female breast Comment: On ChemoRx.Sx done 12/24 (5) KARUNA (acute kidney injury) Code(s): N17.9 - ACUTE KIDNEY FAILURE, UNSPECIFIED Status: Resolved Comment : improved with IVF (6) Hypovolemic shock Code(s): R57.1 - HYPOVOLEMIC SHOCK Status: Resolved Comment: improved (7) Surgical wound dehiscence Code(s): T81.31XA - DISRUPTION OF EXTERNAL OPERATION (SURGICAL) WOUND, NEC, INIT Status: Chronic Qualifiers: Encounter type: subsequent encounter Qualified Code(s): T81.31XD - Disruption of external operation (surgical) wound, not elsewhere classified, subsequent encounter Comment: bedside debridement today. follow up on findings - Plan cont current plan of care, continue antibiotics, PT/OT * .
[2017-03-21 11:51] VITALS: BMI 48.2
[2017-03-21] MEDS: Escitalopram Oxalate 10 mg Tablet PO SCH (21:06)
[2017-03-22 05:55] LABS: Anion Gap 9 mmol/L (10-20); BUN (Urea Nitrogen) 11 mg/dL (7.0-18.7); Calc. Creatinine Clearance 189 mL/min (70-130); Calcium 8.5 mg/dL (7.8-10.44); Carbon Dioxide 23 mmol/L (22-29); Chloride 113 mmol/L (98-107); Estimated GFR-MDRD 81; Magnesium 1.3 mg/dL (1.6-2.6)
[2017-03-22 06:18] LABS: Red Blood Cell (RBC) Count 2.35 mill/uL (4.20-5.40)
[2017-03-22 06:19] LABS: Band 4 % (5-11); Neutrophil 20 % (42-75)
[2017-03-22] MEDS: 1/2 NS w/KCL 20 mEq 1,000 ML IV SCH (06:59)
[2017-03-22] MEDS ORDERED: metFORMIN HCl XR 500 MG TAB PO SCH (08:00)
[2017-03-22 08:13] VITALS: BP 142/82; TEMP 98
[2017-03-22] MEDS ORDERED: Loratadine 10 MG TAB PO SCH (09:00)
[2017-03-22] MEDS ORDERED: Pioglitazone HCl 15 MG TAB PO SCH (09:00)
[2017-03-22] MEDS: Famotidine/PF 20 mg/2ml Vial SLOW IVP SCH (09:05)
[2017-03-22] MEDS: Folic Acid 1 MG TAB PO SCH (09:06)
[2017-03-22] MEDS: Gabapentin 300 MG CAP PO SCH ×2 (09:06→15:07)
[2017-03-22] MEDS: prednisoLONE 1% Ophth Susp 5 ml Bottle R EYE SCH (09:07)
[2017-03-22] MEDS: Opium Tincture 10% (1ml Charge) PO SCH (09:08)
[2017-03-22] MEDS: Sodium Hypochlorite 0.25% Solution 480 ML BOT TOP SCH (09:08)
[2017-03-22] MEDS ORDERED: Magnesium 2 GM/NS 0.9% 100 ML 2 GM in Premix Bag 1 BAG IVPB SCH (09:15)
[2017-03-22] MEDS ORDERED: Lidocaine 1% w/Epinephrine 1:100K 20 ML VIAL FS SCH (10:00)
[2017-03-22] MEDS: predniSONE 5 MG TAB PO SCH (11:38)
[2017-03-22] MEDS: HYDROcodone/Acetaminophen 5/325 mg Tablet PO PRN (13:02)
--- NOTE | 2017-03-22 16:20 | DIS ---
DATE OF ADMISSION: 03/15/2017 DATE OF DISCHARGE: 03/22/2017 PRIMARY CARE PHYSICIAN: Anayeli Lawton. DISCHARGE DIAGNOSES: 1. Chemotherapy-induced diarrhea. 2. Hypovolemic shock. 3. Hypomagnesemia. 4. Pancytopenia, likely secondary to chemotherapy. 5. Breast cancer, unknown estrogen receptor status. 6. Acute kidney injury. 7. Surgical wound dehiscence. 8. Diabetes mellitus type 2, non-insulin dependent, without any known complications. CONSULTATIONS: 1. Oncology, Terri Kelly. 2. Gastroenterology, Dr. Anna Monroe on 03/18/2017. PROCEDURES: 1. She had a Port-A-Cath imaging on 03/20/2017 showed no abnormalities. 2. Excisional wound debridement of the left breast on 03/20/[address] Draper. HISTORY AND PHYSICAL: Ms. Cuevas is a 51-year-old -Swiss female with breast cancer, stat us post resection on 12/28/2016. She is currently receiving chemotherapy. During the course of janny mo, she has developed left breast surgical wound dehiscence and has been getting wound VAC therapy. She came to the emergency department the day of admission with severe nausea, vomiting, and diarrhea . She was found to be hypotensive, had a creatinine of 3.14 and potassium of 2.8 and low magnesium. Her blood pressure was 106/78 and she looked poor. She was subsequently admitted to the hospital for IV fluids and support. HOSPITAL COURSE: The patient admitted on 03/15/[address] Parrish. She was started on IV fluids, sliding scale insulin, and PPI and SCDs for prophylaxis that she had a low platelet count. Overnight 03/15/2017 to 03/16/2017, patient continued to have diarrhea. Oncology was consulted and started the patient on tincture of opium. C. diff study was negative and white blood cell count rem ained stable. Patient continued to have multiple episodes of diarrhea per day. Overnight 03/16/2017 to 03/17/2017, the patient was continuing to improve with less bowel movements. GI was consulted for the recommendations and consideration for endoscopy. Patient remained afebri le and vital signs remained stable after getting rehydrated with fluids. Her creatinine improved ba ck to baseline. Overnight 03/17/2017 to 03/18/2017, the patient continued to stabilize. She was seen by Dr. Julissa gould and I took over the case. Dr. Monroe agreed with tincture of opium 4 times a day. He felt e colonoscopy would not offer any additional information and the patient was continued to be support ed. By 03/19/2017, the patient had an episode with wound VAC change overnight where her wound was found to be foul smelling with necrotic tissue. Surgery was consulted and saw the patient on 03/19/2017 a nd arranged for a bedside debridement that happened on03/20/2017. In the meantime, the patient was placed on Dakin's dressings b.i.d. quarter strength and tolerated t hat well. On 03/20/2017, she had bedside debridement with minimal residual necrotic tissue left to excise. Behzad ambrocio was only having 1 to 2 bowel movements per day, but we continued to replace her magnesium is to re main low. The rest of electrolytes remain stable. On 03/21/2017, she continued to have hypomagnesemia, we continued to replete her with large amounts, by afternoon would be back to normal level, and by the next morning again on 03/22/2017, she was ba ck down to 1.3. We gave her another 2 grams of magnesium and patient was able to get up and walk [facility] physical therapy about 120 feet today. She had no further diarrhea and was tolerating the tinctu re of opium and was stable for discharge home with outpatient followup. DISCHARGE PHYSICAL EXAMINATION: The patient was seen and examined on the day of discharge. DISCHARGE PLAN: Disposition was discussed with the patient face to face at the bedside. DISCHARGE MEDICATIONS: 1. Tincture of opium 10% 0.6 mL p.o. b.i.d. 2. Tylenol p.r.n. 3. Cholecalciferol 1000 unit at bedtime. 4. Diphenoxylate hydrochloride/atropine 2.5 mg every 4 hours as needed. 5. Lexapro 20 mg p.o. at bedtime. 6. Nexium 40 mg daily. 7. Folic acid 800 mcg daily. 8. Furosemide on hold. 9. Gabapentin 300 mg p.o. t.i.d. 10. Imodium 2 mg p.o. q.2 hours p.r.n. for diarrhea. 11. Diovan HCT 100/12.5 one daily. 12. Metoprolol succinate 150 mg daily. 13. Naproxen 500 b.i.d. p.r.n. 14. Zofran 8 mg p.o. q.8 hours p.r.n. for nausea. 15. Actos 30 mg daily. 16. Potassium 99 mg daily. 17. Prochlorperazine 10 mg p.o. q.4 hours 18. Promethazine 1 tab p.o. q.4 hours p.r.n. for nausea. 19. Norvasc 10 mg daily. 20. Clonidine. FOLLOWUP APPOINTMENTS 1. [facility] within a week. 2. Dr. Mantilla with Oncology per their clinic, looks to be 03/25/2017. 3. Activity as tolerated. DISCHARGE CONDITION: Good. DISPOSITION: The patient will be discharged home via private vehicle.
== END 2017-03-22 15:28 | disposition home or self-care (01) | DRG 987 ==
LOC: ERS 12:47 → ONC 15:41
PROVIDERS: ADMIT Internal Medicine; ATTEND Internal Medicine
PROC: 30233R1 Transfusion of Nonautologous Platelets into Peripheral Vein, Percutaneous Approach (ICD-10-PCS; principal; 2017-03-18)
PROC: 0HBU0ZZ Excision of Left Breast, Open Approach (ICD-10-PCS; 2017-03-20)
DX: K52.1 Toxic gastroenteritis and colitis (principal); R57.1 Hypovolemic shock; N17.9 Acute kidney failure, unspecified; D61.810 Antineoplastic chemotherapy induced pancytopenia; I96 Gangrene, not elsewhere classified; T81.31XA Disruption of external operation (surgical) wound, not elsewhere classified, initial encounter; Z68.42 Body mass index [BMI] 45.0-49.9, adult; E11.40 Type 2 diabetes mellitus with diabetic neuropathy, unspecified; T45.1X5A Adverse effect of antineoplastic and immunosuppressive drugs, initial encounter; Z17.1 Estrogen receptor negative status [ER-]; C50.012 Malignant neoplasm of nipple and areola, left female breast; E86.0 Dehydration; D05.12 Intraductal carcinoma in situ of left breast; I10 Essential (primary) hypertension; E83.42 Hypomagnesemia; E87.6 Hypokalemia; Z45.2 Encounter for adjustment and management of vascular access device; K21.9 Gastro-esophageal reflux disease without esophagitis; E78.5 Hyperlipidemia, unspecified; F41.9 Anxiety disorder, unspecified; F32.9 Major depressive disorder, single episode, unspecified; Z87.891 Personal history of nicotine dependence; E66.01 Morbid (severe) obesity due to excess calories; Z23 Encounter for immunization
CPT/HCPCS: 36415; 36416; 36430; 36598; 74000; 74176; 80048; 80053; 81001; 83630; 83690; 83735; 85025; 86850; 86900; 86901; 87015; 87045; 87046; 87077; 87086; 87186; 87206; 87324; 87449; 87899; 90471; 90682; 90732; 94760; 96361; 96365; 96366; 96375; A4216; G0008; G0009; G8978-GP-CK; G8979-GP-CI; J0744; J1642; J2001; J2270; J2405; J2997; J3010; J3475; J3480; J7042; J7050; P9035; Q2036; S0020; S0028

== ENCOUNTER 2017-03-25 07:52 | Outpatient (CLI) | payer OTHER, SELFPAY ==
[2017-03-25] MEDS ORDERED: Sodium Chloride 0.9% 15 ML NEB ONE (17:25)
[2017-03-25] MEDS ORDERED: Lidocaine 4% Topical Sol 50 ML BOT ONE (17:25)
== END 2017-03-25 07:53 | disposition home or self-care (01) ==
LOC: WCC 07:52
PROVIDERS: ATTEND Family Medicine
DX: T81.89XD Other complications of procedures, not elsewhere classified, subsequent encounter (principal)
CPT/HCPCS: 97605; A4218; J2001

== ENCOUNTER 2017-03-28 10:15 | Outpatient (CLI) | payer OTHER ==
[2017-03-28] MEDS ORDERED: Sodium Chloride 0.9% 15 ML NEB ONE (16:56)
[2017-03-28] MEDS ORDERED: Lidocaine 4% Topical Sol 50 ML BOT ONE (16:56)
== END 2017-03-28 10:16 | disposition home or self-care (01) ==
LOC: WCC 10:15
PROVIDERS: ATTEND Family Medicine
DX: T81.89XD Other complications of procedures, not elsewhere classified, subsequent encounter (principal)
CPT/HCPCS: 97605; A4218; J2001

== ENCOUNTER 2017-04-01 07:55 | Outpatient (CLI) | payer OTHER, SELFPAY ==
[2017-04-01] MEDS ORDERED: Lidocaine 2% Jelly 5 ML TUBE ONE (17:05)
[2017-04-01] MEDS ORDERED: Sodium Chloride 0.9% 15 ML NEB ONE (17:05)
== END 2017-04-01 07:56 | disposition home or self-care (01) ==
LOC: WCC 07:55
PROVIDERS: ATTEND Family Medicine
DX: T81.89XD Other complications of procedures, not elsewhere classified, subsequent encounter (principal)
CPT/HCPCS: 36415; 80053; 82248; 83615; 84100; 84550; 96367; 96413; 96417; 97602; A4216; A4218; J1100; J1642; J2469; J7050; J9045; J9355

== ENCOUNTER 2017-04-01 10:56 | Day surgery (SDC) | payer OTHER, SELFPAY ==
[2017-04-01] MEDS ORDERED: Sodium Chloride 0.9% 20 ML ONE (11:06)
[2017-04-01] MEDS ORDERED: DOCETAXEL IVPB SCH ×3 (11:15)
[2017-04-01] MEDS ORDERED: SODIUM CHLORIDE 0.9% IVPB SCH ×7 (11:15→11:30)
[2017-04-01] MEDS ORDERED: TRASTUZUMAB IVPB SCH ×3 (11:15)
[2017-04-01] MEDS ORDERED: Dexamethasone 10 MG in Sodium Chloride 0.9% 50 ML IVPB SCH (11:15)
[2017-04-01] MEDS ORDERED: Palonosetron HCl 0.25 MG in Sodium Chloride 0.9% 50 ML IVPB SCH ×3 (11:15)
[2017-04-01] MEDS ORDERED: CARBOPLATIN IVPB SCH (11:30)
[2017-04-01 12:30] VITALS: BP 149/68; TEMP 98.1
== END 2017-04-01 15:51 | disposition home or self-care (01) ==
LOC: ONC/OP 10:56
PROVIDERS: ATTEND Internal Medicine Hematology & Oncology
DX: Z51.11 Encounter for antineoplastic chemotherapy (principal); C50.012 Malignant neoplasm of nipple and areola, left female breast; I10 Essential (primary) hypertension; E11.40 Type 2 diabetes mellitus with diabetic neuropathy, unspecified; E66.01 Morbid (severe) obesity due to excess calories; E78.5 Hyperlipidemia, unspecified; K21.9 Gastro-esophageal reflux disease without esophagitis; M19.90 Unspecified osteoarthritis, unspecified site; F32.9 Major depressive disorder, single episode, unspecified; F41.9 Anxiety disorder, unspecified; Z68.42 Body mass index [BMI] 45.0-49.9, adult; Z17.1 Estrogen receptor negative status [ER-]; Z79.84 Long term (current) use of oral hypoglycemic drugs; Z79.891 Long term (current) use of opiate analgesic; Z79.899 Other long term (current) drug therapy; Z95.828 Presence of other vascular implants and grafts; Z90.49 Acquired absence of other specified parts of digestive tract; Z98.890 Other specified postprocedural states; Z87.891 Personal history of nicotine dependence
CPT/HCPCS: 96367; 96413; 96417; A4216; J1100; J1642; J2469; J7050; J9045; J9355

== ENCOUNTER 2017-04-04 10:58 | Outpatient (CLI) | payer SELFPAY ==
--- NOTE | 2017-04-04 13:21 | PRG ---
DATE OF SERVICE: 04/04/2017 HISTORY: Ms. Nava Cuevas is a very pleasant 51-year-old accompanied by her who present s to the Wound Center for evaluation of a wound of the left breast subsequent to lumpectomy with on block excision of the nipple areolar complex and sentinel lymph node biopsy. The patient underwent the preceding procedure on 12/28/[address] Silvestre Santacruz. The patient later underwent MediPort p lacement. The patient continues to receive chemotherapy. The patient states that her last treatmen t was 3 days ago. Just prior to being seen in the Wound Center, the patient was seen by Dr. Santacruz for her nonhealing surgical wound of the left breast. At this time, the patient was receiving dres sing changes of 1/4 inch iodoform gauze. The patient was referred to the Wound Center for the initi ation of negative pressure therapy. The patient has been receiving dressing changes of the wound VA C 2 times per week here in the Wound Center. Since the patient's visit on 02/28/2017, Ms. Cuevas w as admitted to [facility] for complications related to chemotherapy including nausea, vomiting, diarrhea, and thrombocytopenia. During the patient's hospital stay, Ms. Cuevas was seen in consultation by Dr. Draper. On 03/20/2017 at bedside, the patient underwent debridement of her left breast wound. Negative pressure therapy was resumed during the patient's hospital stay and the patient continues to receive dressing changes of the wound VAC 2 times per week here in the Wound Center as stated previously. PHYSICAL EXAMINATION: VITAL SIGNS: Temperature 97.9, pulse 54, respirations 20, blood pressure 137/79. Accu-Chek 58. CHEST: A wound of the left breast subsequent to a lumpectomy with on block excision of the nipple a reolar complex is present. The dimensions of the wound are approximately 3.5 x 8.1 cm. The depth o f the wound is approximately 3.5 cm. Granulation tissue is present within the wound margins. No pu rulent drainage is associated with the wound. No cellulitis of the left breast is appreciated. No maceration of the skin of the periwound is noted. ASSESSMENT AND PLAN: 1. Nonhealing surgical wounds subsequent to left breast lumpectomy with on block excision of the ni pple areolar complex and sentinel lymph node biopsy. Negative pressure therapy will be continued wi th dressing changes of the wound VAC 2 times per week here in the Wound Center. The patient will be seen by Dr. Santacruz in 1 week. I will see Ms. Cuevas again in two weeks. 2. Hypertension. 3. Invasive left breast carcinoma/Paget's disease, status post local resection with chemotherapy. 4. Diabetes mellitus. The patient's Accu-Chek in clinic today is 58. The patient has been reminde d that for optimal wound healing, her blood glucoses should remain below 150. 5. Gastroesophageal reflux disease. 6. Arthritis.
[2017-04-04] MEDS ORDERED: Lidocaine 4% Topical Sol 50 ML BOT ONE (17:32)
[2017-04-04] MEDS ORDERED: Sodium Chloride 0.9% 15 ML NEB ONE (17:32)
== END 2017-04-04 10:59 | disposition home or self-care (01) ==
LOC: WCC 10:58
PROVIDERS: ATTEND Family Medicine
DX: T81.89XD Other complications of procedures, not elsewhere classified, subsequent encounter (principal); C50.912 Malignant neoplasm of unspecified site of left female breast; E11.9 Type 2 diabetes mellitus without complications; M19.90 Unspecified osteoarthritis, unspecified site; K21.9 Gastro-esophageal reflux disease without esophagitis; I10 Essential (primary) hypertension; C50.012 Malignant neoplasm of nipple and areola, left female breast; Z92.21 Personal history of antineoplastic chemotherapy
CPT/HCPCS: 97606; A4218; J2001

== ENCOUNTER 2017-04-05 09:26 | Outpatient (CLI) | payer OTHER, SELFPAY ==
[2017-04-05] MEDS ORDERED: Lidocaine 4% Topical Sol 50 ML BOT ONE (17:11)
[2017-04-05] MEDS ORDERED: Sodium Chloride 0.9% 15 ML NEB ONE (17:11)
== END 2017-04-05 09:27 | disposition home or self-care (01) ==
LOC: WCC 09:26
PROVIDERS: ATTEND Family Medicine
DX: T81.89XD Other complications of procedures, not elsewhere classified, subsequent encounter (principal)
CPT/HCPCS: 97606; A4218; J2001

== ENCOUNTER 2017-04-11 09:56 | Outpatient (CLI) | payer SELFPAY | END 2017-04-11 09:57 | disposition home or self-care (01) | LOC: WCC 09:56 | PROVIDERS: ATTEND Family Medicine | DX: T81.89XD Other complications of procedures, not elsewhere classified, subsequent encounter (principal); Z90.12 Acquired absence of left breast and nipple | CPT/HCPCS: 36416; 97602 ==

== ENCOUNTER 2017-04-15 09:49 | Outpatient (CLI) | payer SELFPAY ==
[2017-04-15] MEDS ORDERED: Lidocaine 2% Jelly 5 ML TUBE ONE (17:07)
[2017-04-15] MEDS ORDERED: Sodium Chloride 0.9% 15 ML NEB ONE (17:07)
== END 2017-04-15 09:50 | disposition home or self-care (01) ==
LOC: WCC 09:49
PROVIDERS: ATTEND Family Medicine
DX: T81.89XD Other complications of procedures, not elsewhere classified, subsequent encounter (principal); Z90.12 Acquired absence of left breast and nipple
CPT/HCPCS: 97606; A4218

== ENCOUNTER 2017-04-18 09:55 | Outpatient (CLI) | payer OTHER, SELFPAY ==
[~2017-04-18 09:55] MED LIST: Lidocaine 4% Topical Sol 50 ML BOT ONE; Sodium Chloride 0.9% 15 ML NEB ONE
== END 2017-04-18 09:56 | disposition home or self-care (01) ==
LOC: WCC 09:55
PROVIDERS: ATTEND Family Medicine
DX: T81.89XD Other complications of procedures, not elsewhere classified, subsequent encounter (principal); Z90.12 Acquired absence of left breast and nipple
CPT/HCPCS: 97605; A4218; J2001

== ENCOUNTER 2017-04-19 11:00 | Observation (INO) | payer OTHER, SELFPAY ==
[2017-04-19 12:25] LABS: Anion Gap 18 mmol/L (10-20); BUN (Urea Nitrogen) 18 mg/dL (7.0-18.7); Calc. Creatinine Clearance 109 mL/min (70-130); Calcium 9.4 mg/dL (7.8-10.44); Carbon Dioxide 25 mmol/L (22-29); Chloride 106 mmol/L (98-107); Estimated GFR-MDRD 62
[2017-04-19] MEDS ORDERED: Potassium Chloride 40 MEQ in Sodium Chloride 0.9% 500 ML IVPB SCH (13:00)
[2017-04-19 17:50] LABS: #Basophils 0.1 thou/uL (0.0-0.2); #Lymphocytes 2.4 thou/uL (1.20-3.40); #Monocytes 0.6 thou/uL (0.11-0.59); #Neutrophils 2.4 thou/uL (1.40-6.50); %Basophils 1.3 % (0.0-1.0); %Eosinophils 0.3 % (0.0-10.0); %Lymphocytes 43.5 % (21.0-51.0); %Monocytes 10.8 % (0.0-10.0); Hematocrit 18.9 % (36.0-47.0); Mean Platelet Volume 6.7 fL (7.4-10.4); Red Blood Cell (RBC) Count 1.87 mill/uL (4.20-5.40); White Blood Cell (WBC) Count 5.5 thou/uL (4.8-10.8)
[2017-04-19 18:22] LABS: Anion Gap 17 mmol/L (10-20); BUN (Urea Nitrogen) 12 mg/dL (7.0-18.7); Calc. Creatinine Clearance 194 mL/min (70-130); Calcium 7.3 mg/dL (7.8-10.44); Carbon Dioxide 15 mmol/L (22-29); Chloride 111 mmol/L (98-107); Estimated GFR-MDRD Greater than 90
[2017-04-19] MEDS ORDERED: CEFAZOLIN/Water 2 GM/20 ML SYRINGE ONE (18:24)
[2017-04-19] MEDS ORDERED: Lidocaine 2% w/Epinephrine 1:200K 20 ML VIAL ONE (18:31)
[2017-04-19] MEDS ORDERED: Bupivacaine/Epinephrine 0.25% 30 ML VIAL ONE (18:32)
[2017-04-19] MEDS ORDERED: Fentanyl 100 MCG/2 ML VIAL ONE ×3 (20:03→23:27)
[2017-04-19] MEDS ORDERED: Ketorolac Tromethamine 30 MG/ML VIAL ONE (20:17)
[2017-04-19] MEDS ORDERED: Propofol 200 MG/20 ML VIAL ONE (20:17)
[2017-04-19] MEDS ORDERED: Lidocaine 2% MPF 10 ML AMP (For Epidural Use) ONE (20:17)
[2017-04-19] MEDS ORDERED: Ondansetron HCl/PF 4 MG/2 ML Vial ONE (20:17)
[2017-04-19] MEDS ORDERED: Dexamethasone 20 MG/5 ML VIAL ONE (20:17)
[2017-04-19] MEDS ORDERED: Succinylcholine Chloride 20 MG/ML 10 ml SYRINGE FS ONE (20:17)
[2017-04-19] MEDS ORDERED: Ondansetron HCl/PF 4 MG/2 ML Vial IVP PRN (22:22)
[2017-04-19] MEDS ORDERED: Promethazine HCl 25 MG/ML VIAL SLOW IVP PRN (22:22)
[2017-04-19] MEDS ORDERED: Promethazine HCl 25 MG/ML VIAL IM PRN (22:22)
[2017-04-19] MEDS ORDERED: HYDROcodone/Acetaminophen 7.5/325 mg Tablet PO PRN ×2 (22:55→22:56)
[2017-04-19] MEDS ORDERED: Labetalol HCl 100 MG/20 ML VIAL ONE (22:56)
[2017-04-19] MEDS ORDERED: Promethazine 25 MG TAB PO PRN (22:57)
[2017-04-19] MEDS ORDERED: Morphine 4 MG/ML VIAL IV PRN ×3 (22:59→23:00)
--- NOTE | 2017-04-19 23:10 | PDOC.OP ---
Operative Note - Operative Note Operative Note: DATE OF PROCEDURE: 04/19/2017 SURGEON: Silvestre Santacruz M.D. PREOPERATIVE DIAGNOSES: Left Breast cancer POSTOPERATIVE DIAGNOSIS: Left breast cancer HISTORY: Patient with breast cancer initially treated with left central lumpectomy and sentinel lymph node biopsy. However she has had problems with wound breakdown and has decided to proceed with mastectomy. Initially plans were also made to possibly revise or replace her Mediport but when it was examined in the operating room it was in working order and easily accessed. PROCEDURE IN DETAIL: After informed consent was obtained and appropriate preoperative antibiotic were administered the patient was taken to the operating room and prepped and general endotracheal anesthesia was administered. The patient was then prepped and draped in the standard sterile fashion and the open wound of the left breast was closed with nylon sutures and then excluded from the field with Tegaderms. The left mastectomy was then performed. An elliptical incision including the central incision was created and flaps raised superiorly to the level of the clavicle, inferiorly to the level of the rectus sheath and medially to the level of the sternum. The breast tissue was then dissected free of the pectoralis in a medial to lateral fashion and marked for orientation with a long lateral and short superior suture. The wound was irrigated and hemostasis obtained using Bovie electrocautery. A GET drain was placed laterally and secured to the skin. The subcutaneous tissues and deep dermis were reapproximated with interrupted [id number] Vicryl sutures and the skin was closed with running subcuticular Monocryl sutures. The patient was extubated and taken to the recovery room in good condition. Estimated blood loss was minimal. Specimen is left breast.
[2017-04-19] MEDS ORDERED: Labetalol HCl 100 MG/20 ML VIAL SLOW IVP SCH (23:30)
[2017-04-20] MEDS: D5 1/2 NS w/40 mEq KCL 1,000 ML IV SCH ×3 (01:07→10:30)
[2017-04-20] MEDS ORDERED: Prochlorperazine Maleate 5 MG TAB PO PRN (02:00)
[2017-04-20] MEDS ORDERED: Promethazine 25 MG TAB PO PRN (02:00)
[2017-04-20] MEDS ORDERED: Promethazine HCl 25 MG SUPP PR PRN (02:01)
[2017-04-20] MEDS ORDERED: Lorazepam 1 MG TAB PO PRN (02:02)
[2017-04-20] MEDS ORDERED: Loperamide HCl 2 MG CAP PO PRN (02:02)
[2017-04-20] MEDS ORDERED: Naproxen 500 MG TAB PO PRN (02:08)
[2017-04-20] MEDS ORDERED: Ondansetron ODT 8 MG TAB PO PRN (02:09)
[2017-04-20] MEDS ORDERED: Diphenoxylate HCl/Atropine Tablet PO PRN (02:11)
[2017-04-20 02:27] VITALS: BMI 43.9
[2017-04-20 05:29] LABS: #Lymphocytes 1.1 thou/uL (1.20-3.40); #Monocytes 0.2 thou/uL (0.11-0.59); #Neutrophils 6.8 thou/uL (1.40-6.50); %Basophils 0.5 % (0.0-1.0); %Eosinophils 0.3 % (0.0-10.0); %Lymphocytes 13.8 % (21.0-51.0); %Monocytes 2.1 % (0.0-10.0); Mean Platelet Volume 6.8 fL (7.4-10.4); Red Blood Cell (RBC) Count 3.37 mill/uL (4.20-5.40); White Blood Cell (WBC) Count 8.2 thou/uL (4.8-10.8)
[2017-04-20 05:44] LABS: Anion Gap 18 mmol/L (10-20); BUN (Urea Nitrogen) 17 mg/dL (7.0-18.7); Calc. Creatinine Clearance 119 mL/min (70-130); Carbon Dioxide 19 mmol/L (22-29); Chloride 108 mmol/L (98-107); Estimated GFR-MDRD 64
[2017-04-20] MEDS ORDERED: Potassium Chloride 40 MEQ in Sodium Chloride 0.9% 250 ML 250 ML IVPB SCH (06:45)
[2017-04-20] MEDS ORDERED: predniSONE 5 MG TAB PO SCH (08:00)
[2017-04-20] MEDS ORDERED: Folic Acid 1 MG TAB PO SCH (09:00)
[2017-04-20] MEDS ORDERED: Losartan 25 MG TAB PO SCH (09:00)
[2017-04-20] MEDS ORDERED: cloNIDine 0.2 MG TAB PO SCH (09:00)
[2017-04-20] MEDS ORDERED: Enoxaparin Sodium 40 MG/0.4 ML SYRINGE SC SCH (09:00)
[2017-04-20] MEDS ORDERED: Hydrochlorothiazide 25 MG TAB PO SCH (09:00)
[2017-04-20] MEDS ORDERED: Amlodipine 10 MG TAB PO SCH (09:00)
[2017-04-20] MEDS ORDERED: POTASSIUM 99MG PO SCH (09:00)
[2017-04-20] MEDS ORDERED: Loratadine 10 MG TAB PO SCH (09:00)
[2017-04-20] MEDS ORDERED: prednisoLONE 1% Ophth Susp 5 ml Bottle R EYE SCH (09:00)
[2017-04-20] MEDS ORDERED: Furosemide 20 MG TAB PO SCH (09:00)
[2017-04-20] MEDS ORDERED: Pioglitazone HCl 15 MG TAB PO SCH (09:00)
[2017-04-20] MEDS ORDERED: MILK THISTLE SEED EXTRACT PO SCH (09:00)
[2017-04-20] MEDS: metFORMIN XR 500 MG TAB PO SCH ×3 (09:18→19:41)
[2017-04-20] MEDS: Gabapentin 300 MG CAP PO SCH ×2 (09:19→19:40)
[2017-04-20 17:45] VITALS: BP 137/77; TEMP 98.3
[2017-04-20] MEDS ORDERED: Escitalopram Oxalate 20 mg Tablet PO SCH (21:00)
[2017-04-21] MEDS ORDERED: predniSONE 5 MG TAB PO SCH (08:00)
--- NOTE | 2017-04-22 11:12 | DIS ---
DATE OF ADMISSION: 04/19/2017 DATE OF DISCHARGE: 04/20/2017 FINAL DIAGNOSES: 1. Left breast cancer. 2. Hypertension. 3. Diabetes. 4. Chronic open wound of the left breast. 5. Morbid obesity. HISTORY OF PRESENT ILLNESS: Ms. Cuevas is a 51-year-old woman who presented with left breast cancer and Paget's disease. She underwent a central lumpectomy with excision of the nipple areolar complex , but had chronic wound healing issues and decided to proceed with mastectomy. She underwent this on 04/19/2017 without event. Postoperatively, she was admitted for pain control. Once her pain was ad equately managed by oral medications, she was discharged home. She is to follow up in the [facility] in 10 days for removal of her surface wound VAC and postoperative followup. DISCHARGE MEDICATIONS: Include potassium, milk thistle, folate, prednisone, metoprolol, Nexium, clon idine, amlodipine, losartan/hydrochlorothiazide, glipizide, metformin, prednisolone eyedrops, pioglit azone, naproxen, Lexapro, vitamin D, gabapentin, Lasix, Lomotil, Phenergan, Zofran, loratadine, proch lorperazine maleate, lorazepam, [place] and Imodium.
== END 2017-04-20 19:25 | disposition home or self-care (01) ==
LOC: SDC 11:00 → SURG B 22:35
PROVIDERS: ADMIT Surgery; ATTEND Surgery
PROC: 0HTU0ZZ Resection of Left Breast, Open Approach (ICD-10-PCS; principal; 2017-04-20)
DX: L98.8 Other specified disorders of the skin and subcutaneous tissue (principal); E11.9 Type 2 diabetes mellitus without complications; I10 Essential (primary) hypertension; K21.9 Gastro-esophageal reflux disease without esophagitis; H57.9 Unspecified disorder of eye and adnexa; M19.90 Unspecified osteoarthritis, unspecified site; Z79.84 Long term (current) use of oral hypoglycemic drugs; Z79.52 Long term (current) use of systemic steroids; Z79.1 Long term (current) use of non-steroidal anti-inflammatories (NSAID); Z79.899 Other long term (current) drug therapy; Z90.49 Acquired absence of other specified parts of digestive tract; Z98.890 Other specified postprocedural states; Z85.3 Personal history of malignant neoplasm of breast
CPT/HCPCS: 36415; 36430; 80048; 85025; 86850; 86900; 86901; 88307; 96365; 96366; 96372; 96374; G0378; J1100; J1642; J1650; J1885; J2001; J2405; J2704; J3010; J3480; J7050; P9016

== ENCOUNTER 2017-05-16 07:40 | Day surgery (SDC) | payer OTHER, SELFPAY ==
[2017-05-15 10:44] VITALS: BMI 45.1
[2017-05-16] MEDS ORDERED: MEROPENEM 1 GM/50 ML 1 GM in Premix Bag 1 BAG IVPB SCH (08:45)
[2017-05-16] MEDS ORDERED: Bupivacaine/Epinephrine 0.25% 30 ML VIAL ONE (11:11)
[2017-05-16] MEDS ORDERED: Midazolam HCl 2 mg/2 ml Vial ONE (11:14)
[2017-05-16] MEDS ORDERED: Fentanyl 100 MCG/2 ML VIAL ONE (11:14)
[2017-05-16] MEDS ORDERED: Bacitracin Zinc Ointment 30 gm TUBE ONE (12:24)
[2017-05-16] MEDS ORDERED: Ketorolac Tromethamine 30 MG/ML VIAL ONE (13:29)
[2017-05-16] MEDS ORDERED: Sodium Chloride 0.9% 10 ML ONE (15:06)
[2017-05-16] MEDS ORDERED: Glycopyrrolate 0.2 MG/ML 5 ML SYRINGE ONE (17:21)
[2017-05-16] MEDS ORDERED: Propofol 200 MG/20 ML VIAL ONE (17:21)
[2017-05-16] MEDS ORDERED: Lidocaine 1% PF 5 ML VIAL ONE (17:21)
[2017-05-16] MEDS ORDERED: ePHEDrine/0.9% NaCl/PF SYRINGE 50 mg/10 ml ONE (17:21)
--- NOTE | 2017-05-24 16:22 | PDOC.OP ---
Operative Note - Operative Note Operative Note: PROCEDURE: Revision and washout of left mastectomy DATE OF PROCEDURE: 05/16/2017 SURGEON: Silvestre Santacruz M.D. PREOPERATIVE DIAGNOSES: Recurrent seroma and skin loss of left mastectomy POSTOPERATIVE DIAGNOSIS: Recurrent seroma and skin loss of left mastectomy HISTORY: Patient is status post left mastectomy for multifocal breast cancer and wound dehiscence following central lumpectomy. She developed a recurrent seroma after removal of her drain and has some areas of skin necrosis of the recommendation was made to proceed to the operating room for washout and drainage of the seroma and revision of the mastectomy incision with excision of the nonviable skin. PROCEDURE IN DETAIL: After informed consent was obtained and appropriate preoperative antibiotics continued the patient was taken to the operating she was placed in supine position and anesthesia was administered. She was prepped and draped in a standard sterile fashion and local anesthesia infused to the skin surrounding the areas of skin loss medially and laterally. The nonviable skin was excised and the seroma cavity entered. This appeared to have some chronic encapsulation so the seroma cavity was treated with debridement and electrocautery. The previous seroma catheter had already been removed prior to the operation and a new GET drain was placed into the cavity. The wound was copiously irrigated and the subcutaneous tissues closed in layers with a V lock Vicryl suture over the GET drain. The skin was reapproximated with interrupted vertical mattress nylon sutures and the GET drain was secured to the skin with a nylon suture. A gauze and Tegaderm dressing was placed at the GET exit sites and a Prevena surface wound VAC was placed over the mastectomy incision. The patient was extubated and taken to the recovery room in good condition. Estimated blood loss was minimal. There were no complications. Specimens are excised skin and breast tissue
== END 2017-05-16 15:30 | disposition home or self-care (01) ==
LOC: SDC 07:40
PROVIDERS: ATTEND Surgery
PROC: 0H9U00Z Drainage of Left Breast with Drainage Device, Open Approach (ICD-10-PCS; principal; 2017-05-16)
DX: T81.31XA Disruption of external operation (surgical) wound, not elsewhere classified, initial encounter (principal); C50.012 Malignant neoplasm of nipple and areola, left female breast; N64.89 Other specified disorders of breast; Z79.84 Long term (current) use of oral hypoglycemic drugs; E11.9 Type 2 diabetes mellitus without complications; I10 Essential (primary) hypertension; M19.90 Unspecified osteoarthritis, unspecified site; Z17.1 Estrogen receptor negative status [ER-]; Z79.52 Long term (current) use of systemic steroids; Z79.899 Other long term (current) drug therapy; Z90.12 Acquired absence of left breast and nipple; Z98.890 Other specified postprocedural states
CPT/HCPCS: 88305; 96374; J1642; J1885; J2001; J2250; J2704; J3010

== ENCOUNTER 2017-05-24 10:47 | Day surgery (SDC) | payer OTHER ==
[2017-05-24] MEDS ORDERED: ADMIXTURE FEE IVPB SCH (11:15)
[2017-05-24] MEDS ORDERED: SODIUM CHLORIDE IVPB SCH (11:15)
[2017-05-24] MEDS ORDERED: TRASTUZUMAB IVPB SCH (11:15)
[2017-05-24] MEDS ORDERED: Sodium Chloride 0.9% 20 ML ONE (12:44)
[2017-05-24 14:02] VITALS: BP 141/75; TEMP 97.6
== END 2017-05-24 14:07 | disposition home or self-care (01) ==
LOC: ONC/OP 10:47
PROVIDERS: ATTEND Internal Medicine Hematology & Oncology
DX: Z51.11 Encounter for antineoplastic chemotherapy (principal); C50.412 Malignant neoplasm of upper-outer quadrant of left female breast; I10 Essential (primary) hypertension; E66.01 Morbid (severe) obesity due to excess calories; E11.40 Type 2 diabetes mellitus with diabetic neuropathy, unspecified; K21.9 Gastro-esophageal reflux disease without esophagitis; E78.5 Hyperlipidemia, unspecified; M19.90 Unspecified osteoarthritis, unspecified site; F32.9 Major depressive disorder, single episode, unspecified; F41.9 Anxiety disorder, unspecified; Z17.1 Estrogen receptor negative status [ER-]; Z68.42 Body mass index [BMI] 45.0-49.9, adult; Z79.2 Long term (current) use of antibiotics; Z79.84 Long term (current) use of oral hypoglycemic drugs; Z79.52 Long term (current) use of systemic steroids; Z79.899 Other long term (current) drug therapy; Z90.49 Acquired absence of other specified parts of digestive tract; Z98.890 Other specified postprocedural states; Z87.891 Personal history of nicotine dependence
CPT/HCPCS: 96413; A4216; J1642; J5355; J7050

== ENCOUNTER 2017-06-07 12:18 | Outpatient (CLI) | payer OTHER | END 2017-06-07 12:19 | disposition home or self-care (01) | LOC: ULT 12:18 | PROVIDERS: ATTEND Internal Medicine Hematology & Oncology | DX: Z51.11 Encounter for antineoplastic chemotherapy (principal); C50.919 Malignant neoplasm of unspecified site of unspecified female breast; I34.0 Nonrheumatic mitral (valve) insufficiency; I07.1 Rheumatic tricuspid insufficiency; Z79.899 Other long term (current) drug therapy | CPT/HCPCS: 93306 ==

== ENCOUNTER 2017-06-13 11:46 | Day surgery (SDC) | payer OTHER, SELFPAY ==
[2017-06-13] MEDS ORDERED: Sodium Chloride 0.9% 20 ML ONE (12:01)
[2017-06-13 12:02] VITALS: BP 142/73; TEMP 97.7
[2017-06-13] MEDS ORDERED: TRASTUZUMAB IVPB SCH (12:30)
[2017-06-13] MEDS ORDERED: SODIUM CHLORIDE 0.9% IVPB SCH (12:30)
--- NOTE | 2017-06-13 15:08 | RAD ---
VASCULAR PORT CHEST: Date: 06-13-17 Comparison: 03-20-17 History: 51-year-old female who underwent recent attempted chemotherapy and fusion via a right sided port-a-ca th. The patient reported that there was pain during infusion which was immediately terminated. FINDINGS: Insecticide Sprayer imaging demonstrates a stable right upper extremity port-a-cath. The distal tip overlies the re gion of the clavicular head on the right. Initially, attempts were made to flush and aspirate the catheter with saline. Flushing was successful but aspiration does not yield blood. Subsequently, a small volume of contrast media is injected, filling the catheter tubing. The contrast media did not exit the distal tip of the catheter and extend into the vascular structures in a ac l fashion. Instead, there is contrast media which extends along the course of the catheter encircling the catheter, indicative of a very prominent/extensive fibroin sheath. Minimal contrast media extend s superior and medial to the catheter tubing near the presumed vascular insertion site, which may be within collateral vessels or in the soft tissues. The patient tolerated the procedure well. Results were discussed with Dr. Arteaga at approximately 2:30 p.m. 06-13-17. IMPRESSION: 1. Right vascular port-a-cath check reveals findings suggesting a very extensive fibrin sheath. The i njected contrast media does not enter the vascular structures. 2. Surgical consultation advised. POS: [facility]
== END 2017-06-13 17:05 | disposition home or self-care (01) ==
LOC: ONC/OP 11:46
PROVIDERS: ATTEND Internal Medicine Hematology & Oncology
DX: Z51.11 Encounter for antineoplastic chemotherapy (principal); C50.412 Malignant neoplasm of upper-outer quadrant of left female breast
CPT/HCPCS: 36598; 96413; 99212; A4216; G0463; J1642; J7050; J9355

== ENCOUNTER 2017-06-14 22:09 | Emergency (ER) | payer OTHER, SELFPAY ==
[2017-06-14] MEDS ORDERED: HYDROcodone/Acetaminophen 10/325 mg Tablet ONE (22:49)
--- NOTE | 2017-06-14 22:52 | RAD ---
RIGHT ANKLE THREE VIEW 06/14/17 HISTORY: Fall. COMPARISON: None. FINDINGS: Distal fibular fracture through the level of the syndesmosis. Ankle mortise appears to be congruent. Moderate edema. Moderate left foot degenerative disease. IMPRESSION: Powers B distal fibular fracture through the syndesmosis without incongruent ankle mortise. POS: [facility]
== END 2017-06-14 23:44 | disposition home or self-care (01) ==
LOC: SCSER 22:09
DX: S82.832A Other fracture of upper and lower end of left fibula, initial encounter for closed fracture (principal); E11.9 Type 2 diabetes mellitus without complications; I10 Essential (primary) hypertension; F41.9 Anxiety disorder, unspecified; F32.9 Major depressive disorder, single episode, unspecified; Z79.899 Other long term (current) drug therapy; Z79.84 Long term (current) use of oral hypoglycemic drugs; W18.30XA Fall on same level, unspecified, initial encounter
CPT/HCPCS: 29405

== ENCOUNTER 2017-06-19 15:52 | Outpatient (CLI) | payer SELFPAY | END 2017-06-19 15:53 | disposition home or self-care (01) | LOC: LABBT 15:52 | PROVIDERS: ATTEND Surgery | DX: Z01.818 Encounter for other preprocedural examination (principal); C50.912 Malignant neoplasm of unspecified site of left female breast | CPT/HCPCS: 93005; 93010 ==

== ENCOUNTER 2017-06-21 07:25 | Day surgery (SDC) | payer OTHER, SELFPAY ==
[2017-06-20 11:41] VITALS: BMI 45.1
[2017-06-21] MEDS ORDERED: Ketorolac Tromethamine 30 MG/ML VIAL ONE (08:19)
[2017-06-21] MEDS ORDERED: CEFAZOLIN/Water 2 GM/20 ML SYRINGE ONE (08:20)
[2017-06-21 08:40] LABS: #Eosinphils 0.1 thou/uL (0.0-0.7); #Lymphocytes 3.3 thou/uL (1.20-3.40); #Monocytes 0.5 thou/uL (0.11-0.59); #Neutrophils 4.8 thou/uL (1.40-6.50); %Basophils 0.5 % (0.0-1.0); %Eosinophils 1.7 % (0.0-10.0); %Lymphocytes 37.7 % (21.0-51.0); %Monocytes 5.4 % (0.0-10.0); %Neutrophils 54.6 % (42.0-75.0); Hemoglobin 8.9 g/dL (12.0-16.0); Mean Corpuscular HGB CONC 31.4 g/dL (32.0-36.0); Mean Corpuscular Hemoglobin 32.8 pg (27.0-31.0); Mean Platelet Volume 6.3 fL (7.4-10.4); Platelet Count 291 thou/uL (130-400); RBC Distribution Width 16.5 % (11.5-14.5); White Blood Cell (WBC) Count 8.8 thou/uL (4.8-10.8)
[2017-06-21] MEDS ORDERED: Hydrocortisone Sod Succ/PF 100 mg/2 ml Vial ONE (08:41)
[2017-06-21 09:01] LABS: Anion Gap 16 mmol/L (10-20); BUN (Urea Nitrogen) 27 mg/dL (7.0-18.7); Calc. Creatinine Clearance 159 mL/min (70-130); Carbon Dioxide 24 mmol/L (22-29); Chloride 107 mmol/L (98-107); Estimated GFR-MDRD 86; Glucose 81 mg/dL (70-105); Potassium 3.6 mmol/L (3.5-5.1); Sodium 143 mmol/L (136-145)
[2017-06-21] MEDS ORDERED: Midazolam HCl 2 mg/2 ml Vial ONE (09:28)
[2017-06-21] MEDS ORDERED: Fentanyl 100 MCG/2 ML VIAL ONE (09:28)
[2017-06-21] MEDS ORDERED: Bupivacaine/Epinephrine 0.25% 30 ML VIAL ONE (09:37)
[2017-06-21] MEDS ORDERED: Propofol 500 MG/50 ML VIAL ONE (09:43)
--- NOTE | 2017-06-21 12:12 | RAD ---
PORTABLE CHEST ONE VIEW: 06/21/2017 11:58 a.m. HISTORY: Mediport placement. FINDINGS: The heart size is mildly prominent. There is a left internal jugular Port-A-Cath with the tip in the projection of the SVC. No focal areas of consolidation, pneumothoraces, or pleural effusion is seen . There is no evidence of claudia pulmonary edema. POS: [facility]
--- NOTE | 2017-06-21 16:04 | PDOC.OP ---
Operative Note - Operative Note Operative Note: PROCEDURE: Left internal jugular MediPort placement with ultrasound and fluoroscopic guidance, removal of right internal jugular Mediport SURGEON: Silvestre Santacruz M.D. DATE OF PROCEDURE: 06/21/2017 PREOPERATIVE DIAGNOSIS: Breast cancer with nonfunctioning right IJ Mediport and right IJ thrombosis POSTOPERATIVE DIAGNOSIS: Breast cancer with nonfunctioning right IJ Mediport and right IJ thrombosis HISTORY: Patient is diagnosed with ER TX negative HER-2 positive left breast cancer. Herceptin therapy has been recommended and the oncologist has requested MediPort placement for this. She has a right IJ Mediport in place this is not functioning and recent ultrasound revealed thrombosis of the right internal jugular vein. Patient is had sentinel lymph node biopsy on the left so left subclavian placement is relatively contraindicated. Right subclavian vein was not accessible due to body habitus so left internal jugular Mediport placement was recommended. In addition, the right IJ Mediport is nonfunctional so recommendation was made to remove this under the same anesthesia. OPERATIVE PROCEDURE IN DETAIL: After informed consent was obtained and appropriate preoperative antibiotics were administered, the patient was taken to the operating room and placed in supine position and monitored anesthesia care was administered. The patient was then placed in Trendelenburg position and the left internal jugular vein accessed easily under direct ultrasonographic guidance on the first attempt with excellent flow of dark venous non-pulsatile blood. A wire threaded easily and was confirmed to be in the superior vena cava by fluoroscopy. Additional local anesthesia was infused to the skin and subcutaneous tissues of the upper chest. A skin incision was made and a subcutaneous pocket developed inferiorly. A Mediport was obtained and confirmed to fit in the subcutaneous pocket. This was secured inferiorly to the pectoralis fascia with a Prolene suture, which was clamped, but not tied. Additional local anesthesia was infused between the port site and the access site and the tubing was tunneled up from the chest to the neck incision. The dilator and sheath were then placed over the wire and the dilator and wire removed leaving the sheath in place. The clamped MediPort tubing was tunneled through the sheath, which was then split and removed leaving the MediPort tubing in place. The tubing was adjusted until the tip was confirmed by fluoroscopy to be in the superior vena cava just above the atrium. The tubing was clamped at the skin level and cut and the tubing secured to the port, which was then placed in the subcutaneous pocket. The previously placed suture was secured and two additional sutures were placed to fix the port in place within the pocket. The port was aspirated with the Mitchell needle and had excellent flow of dark venous non-pulsatile blood and easily flushed without resistance. The subcutaneous tissues were closed with a running Monocryl suture , following which the skin was closed with a running subcuticular Monocryl suture. The small incision at the right IJ access site was also closed in 2 layers with Monocryl suture. The course of the catheter was confirmed by fluoroscopy to be smooth with the tip appropriately located in the superior vena cava. Attention was then turned to removal of the right internal jugular Mediport. Local anesthesia was infused to the skin and subcutaneous tissues surrounding the Mediport. The previous skin incision was re-incised and the port dissected free cutting the 3 sutures holding it in place. The Mediport and its tubing were then removed. The subcutaneous pocket was imbricated with interrupted 3-0 Monocryl sutures and the skin was closed with a running 4-0 subcuticular Monocryl suture. Dermabond dressings were placed to all incisions. The patient was taken to recovery in good condition. Estimated blood loss was minimal. There were no complications. There were no specimens.
== END 2017-06-21 13:10 | disposition home or self-care (01) ==
LOC: SDC 07:25
PROVIDERS: ATTEND Surgery
PROC: 0JPT0WZ Removal of Totally Implantable Vascular Access Device from Trunk Subcutaneous Tissue and Fascia, Open Approach (ICD-10-PCS; principal; 2017-06-21)
PROC: B544ZZA Ultrasonography of Left Jugular Veins, Guidance (ICD-10-PCS; principal; 2017-06-21)
PROC: 05HN33Z Insertion of Infusion Device into Left Internal Jugular Vein, Percutaneous Approach (ICD-10-PCS; principal; 2017-06-21)
DX: T82.868A Thrombosis due to vascular prosthetic devices, implants and grafts, initial encounter (principal); C50.012 Malignant neoplasm of nipple and areola, left female breast; I10 Essential (primary) hypertension; E78.5 Hyperlipidemia, unspecified; K21.9 Gastro-esophageal reflux disease without esophagitis; M19.90 Unspecified osteoarthritis, unspecified site; E66.9 Obesity, unspecified; E11.40 Type 2 diabetes mellitus with diabetic neuropathy, unspecified; H20.9 Unspecified iridocyclitis; F41.9 Anxiety disorder, unspecified; F32.9 Major depressive disorder, single episode, unspecified; Z68.42 Body mass index [BMI] 45.0-49.9, adult; Z79.84 Long term (current) use of oral hypoglycemic drugs; Z79.52 Long term (current) use of systemic steroids; Z79.899 Other long term (current) drug therapy; Z17.1 Estrogen receptor negative status [ER-]; Z90.49 Acquired absence of other specified parts of digestive tract; Z90.10 Acquired absence of unspecified breast and nipple; Z98.818 Other dental procedure status; Z98.890 Other specified postprocedural states; Z87.891 Personal history of nicotine dependence
CPT/HCPCS: 36415; 71045; 80048; 85025; C1788; J0131; J1642; J1720; J1885; J2250; J2704; J3010

== ENCOUNTER 2017-07-04 11:34 | Day surgery (SDC) | payer OTHER, SELFPAY ==
[2017-07-04] MEDS ORDERED: Sodium Chloride 0.9% 20 ML ONE (11:40)
[2017-07-04] MEDS ORDERED: SODIUM CHLORIDE 0.9% IVPB SCH (11:45)
[2017-07-04] MEDS ORDERED: TRASTUZUMAB IVPB SCH (11:45)
== END 2017-07-04 14:40 | disposition home or self-care (01) ==
LOC: ONC/OP 11:34
PROVIDERS: ATTEND Internal Medicine Hematology & Oncology
DX: Z51.11 Encounter for antineoplastic chemotherapy (principal); C50.412 Malignant neoplasm of upper-outer quadrant of left female breast; I10 Essential (primary) hypertension; E11.40 Type 2 diabetes mellitus with diabetic neuropathy, unspecified; K21.9 Gastro-esophageal reflux disease without esophagitis; E78.5 Hyperlipidemia, unspecified; M19.90 Unspecified osteoarthritis, unspecified site; F41.9 Anxiety disorder, unspecified; F32.9 Major depressive disorder, single episode, unspecified; S82.891A Other fracture of right lower leg, initial encounter for closed fracture; E66.01 Morbid (severe) obesity due to excess calories; Z17.1 Estrogen receptor negative status [ER-]; Z87.891 Personal history of nicotine dependence; Z95.828 Presence of other vascular implants and grafts; Z79.52 Long term (current) use of systemic steroids; Z79.84 Long term (current) use of oral hypoglycemic drugs; Z79.899 Other long term (current) drug therapy; Z90.12 Acquired absence of left breast and nipple; Z98.890 Other specified postprocedural states
CPT/HCPCS: 96413; A4216; J1642; J7050; J9355

== ENCOUNTER 2017-07-25 11:03 | Day surgery (SDC) | payer OTHER ==
[2017-07-25] MEDS ORDERED: TRASTUZUMAB IVPB SCH ×2 (11:15→11:30)
[2017-07-25] MEDS ORDERED: SODIUM CHLORIDE 0.9% IVPB SCH ×2 (11:15→11:30)
[2017-07-25] MEDS ORDERED: Sodium Chloride 0.9% 20 ML ONE (11:25)
== END 2017-07-25 13:37 | disposition home or self-care (01) ==
LOC: ONC/OP 11:03
PROVIDERS: ATTEND Internal Medicine Hematology & Oncology
DX: Z51.11 Encounter for antineoplastic chemotherapy (principal); C50.412 Malignant neoplasm of upper-outer quadrant of left female breast; I10 Essential (primary) hypertension; E11.40 Type 2 diabetes mellitus with diabetic neuropathy, unspecified; K21.9 Gastro-esophageal reflux disease without esophagitis; M19.90 Unspecified osteoarthritis, unspecified site; E78.5 Hyperlipidemia, unspecified; F41.9 Anxiety disorder, unspecified; F32.9 Major depressive disorder, single episode, unspecified; E66.01 Morbid (severe) obesity due to excess calories; Z68.42 Body mass index [BMI] 45.0-49.9, adult; Z79.84 Long term (current) use of oral hypoglycemic drugs; Z79.899 Other long term (current) drug therapy; Z17.1 Estrogen receptor negative status [ER-]; Z98.890 Other specified postprocedural states; Z87.891 Personal history of nicotine dependence
CPT/HCPCS: 96413; J1642; J7050; J9355

== ENCOUNTER 2017-07-30 13:28 | Outpatient (CLI) | payer OTHER ==
--- NOTE | 2017-07-30 14:12 | ULT ---
LEFT CHEST WALL ULTRASOUND: Comparison: None. History: 51-year-old female status post mastectomy in April. Patient has prominence of soft tissue along th e medial and lateral aspects of the incision. Evaluate for residual breast tissue. Patient has a hist ory of left breast cancer. Technique: Multiplanar grayscale and color doppler images are obtained in a carotid ultrasound of the left chest wall. FINDINGS: Along the medial aspect of the incision, there is an area that is soft and feels fatty on physical ex am. Ultrasound of this area shows what appears to be normal fat without definite breast tissue presen t in this location. Along the lateral aspect of the incision, there is also an area that is mobile an d feels fatty on physical exam and also appears to represent subcutaneous fat along the lateral aspec t of the incision. IMPRESSION: Prominent areas on the medial and lateral aspect of the incision represent areas of dog-earing of the mastectomy closure. POS: [facility]
== END 2017-07-30 13:29 | disposition home or self-care (01) ==
LOC: ULT 13:28
PROVIDERS: ATTEND Internal Medicine Hematology & Oncology
DX: C50.412 Malignant neoplasm of upper-outer quadrant of left female breast (principal); Z90.12 Acquired absence of left breast and nipple
CPT/HCPCS: 76999

== ENCOUNTER 2017-08-15 10:13 | Day surgery (SDC) | payer OTHER ==
[2017-08-15 10:37] VITALS: BP 135/74; TEMP 97.5
[2017-08-15] MEDS ORDERED: TRASTUZUMAB IVPB SCH (11:00)
[2017-08-15] MEDS ORDERED: SODIUM CHLORIDE 0.9% IVPB SCH (11:00)
[2017-08-15] MEDS ORDERED: Sodium Chloride 0.9% 20 ML ONE (12:24)
== END 2017-08-15 12:45 | disposition home or self-care (01) ==
LOC: ONC/OP 10:13
PROVIDERS: ATTEND Internal Medicine Hematology & Oncology
DX: Z51.11 Encounter for antineoplastic chemotherapy (principal); C50.412 Malignant neoplasm of upper-outer quadrant of left female breast; I10 Essential (primary) hypertension; K21.9 Gastro-esophageal reflux disease without esophagitis; E78.5 Hyperlipidemia, unspecified; M19.90 Unspecified osteoarthritis, unspecified site; F41.8 Other specified anxiety disorders; E11.40 Type 2 diabetes mellitus with diabetic neuropathy, unspecified; E66.01 Morbid (severe) obesity due to excess calories; Z68.42 Body mass index [BMI] 45.0-49.9, adult; Z17.1 Estrogen receptor negative status [ER-]; Z79.84 Long term (current) use of oral hypoglycemic drugs; Z79.52 Long term (current) use of systemic steroids; Z79.899 Other long term (current) drug therapy; Z87.891 Personal history of nicotine dependence
CPT/HCPCS: 96413; A4216; J1642; J7050; J9355

== ENCOUNTER 2017-09-05 09:46 | Day surgery (SDC) | payer OTHER, SELFPAY ==
[2017-09-05] MEDS ORDERED: Sodium Chloride 0.9% 20 ML ONE (10:04)
[2017-09-05] MEDS ORDERED: ADMIXTURE FEE IVPB SCH ×2 (10:15→10:30)
[2017-09-05] MEDS ORDERED: SODIUM CHLORIDE IVPB SCH ×2 (10:15→10:30)
[2017-09-05] MEDS ORDERED: TRASTUZUMAB IVPB SCH ×2 (10:15→10:30)
[2017-09-05 12:22] VITALS: BP 120/59; TEMP 97.7
== END 2017-09-05 12:42 | disposition home or self-care (01) ==
LOC: ONC/OP 09:46
PROVIDERS: ATTEND Internal Medicine Hematology & Oncology
DX: Z51.11 Encounter for antineoplastic chemotherapy (principal); C50.412 Malignant neoplasm of upper-outer quadrant of left female breast; I10 Essential (primary) hypertension; E11.40 Type 2 diabetes mellitus with diabetic neuropathy, unspecified; K21.9 Gastro-esophageal reflux disease without esophagitis; E78.5 Hyperlipidemia, unspecified; M19.90 Unspecified osteoarthritis, unspecified site; F41.9 Anxiety disorder, unspecified; F32.9 Major depressive disorder, single episode, unspecified; E66.01 Morbid (severe) obesity due to excess calories; Z68.42 Body mass index [BMI] 45.0-49.9, adult; Z79.84 Long term (current) use of oral hypoglycemic drugs; Z79.899 Other long term (current) drug therapy; Z17.1 Estrogen receptor negative status [ER-]; Z87.891 Personal history of nicotine dependence
CPT/HCPCS: 96413; A4216; J1642; J7050; J9355

== ENCOUNTER 2017-09-26 11:58 | Day surgery (SDC) | payer OTHER, SELFPAY ==
[2017-09-26] MEDS ORDERED: Sodium Chloride 0.9% 40 ML ONE (12:04)
[2017-09-26 12:28] VITALS: BP 120/60; TEMP 97.9
[2017-09-26] MEDS ORDERED: SODIUM CHLORIDE IVPB SCH (12:30)
[2017-09-26] MEDS ORDERED: ADMIXTURE FEE IVPB SCH (12:30)
[2017-09-26] MEDS ORDERED: TRASTUZUMAB IVPB SCH (12:30)
== END 2017-09-26 18:23 | disposition home or self-care (01) ==
LOC: ONC/OP 11:58
PROVIDERS: ATTEND Internal Medicine Hematology & Oncology
DX: Z51.11 Encounter for antineoplastic chemotherapy (principal); C50.412 Malignant neoplasm of upper-outer quadrant of left female breast; C50.019 Malignant neoplasm of nipple and areola, unspecified female breast; I10 Essential (primary) hypertension; K21.9 Gastro-esophageal reflux disease without esophagitis; M19.90 Unspecified osteoarthritis, unspecified site; E78.5 Hyperlipidemia, unspecified; E11.40 Type 2 diabetes mellitus with diabetic neuropathy, unspecified; E66.01 Morbid (severe) obesity due to excess calories; F41.9 Anxiety disorder, unspecified; F32.9 Major depressive disorder, single episode, unspecified; Z87.891 Personal history of nicotine dependence; Z17.1 Estrogen receptor negative status [ER-]; Z79.52 Long term (current) use of systemic steroids; Z79.84 Long term (current) use of oral hypoglycemic drugs; Z79.899 Other long term (current) drug therapy; Z90.12 Acquired absence of left breast and nipple
CPT/HCPCS: 96413; A4216; J1642; J7050; J9355

== ENCOUNTER 2017-10-01 12:35 | Outpatient (CLI) | payer SELFPAY ==
--- NOTE | 2017-10-01 15:16 | ULT ---
ULTRASOUND LEFT UPPER EXTREMITY VENOUS DOPPLER: HISTORY: Left arm erythema. COMPARISON: None. TECHNIQUE: Real-time, wallace scale, color Doppler, and spectral analysis of the left upper extremity venous system was performed with a linear ray transducer. The left axillary subclavian vein, jugular, as well as the brachial, basilic, ulnar, and radial veins were interrogated. The left basilic vein could not be seen below the elbow. The remainder of the venous structures show abnormal flow, augmentation, and compression. IMPRESSION: No deep vein thrombosis. POS: [facility]
== END 2017-10-01 12:36 | disposition home or self-care (01) ==
LOC: ULT 12:35
PROVIDERS: ATTEND Internal Medicine Hematology & Oncology
DX: Z51.11 Encounter for antineoplastic chemotherapy (principal); C50.412 Malignant neoplasm of upper-outer quadrant of left female breast; Z79.899 Other long term (current) drug therapy; I89.0 Lymphedema, not elsewhere classified; I08.1 Rheumatic disorders of both mitral and tricuspid valves
CPT/HCPCS: 93306

== ENCOUNTER 2017-10-17 10:36 | Day surgery (SDC) | payer OTHER, SELFPAY ==
[2017-10-17] MEDS ORDERED: Sodium Chloride 0.9% 20 ML ONE (10:43)
[2017-10-17] MEDS ORDERED: SODIUM CHLORIDE 0.9% IVPB SCH (11:00)
[2017-10-17] MEDS ORDERED: TRASTUZUMAB IVPB SCH (11:00)
== END 2017-10-17 12:33 | disposition home or self-care (01) ==
LOC: ONC/OP 10:36
PROVIDERS: ATTEND Internal Medicine Hematology & Oncology
DX: Z51.11 Encounter for antineoplastic chemotherapy (principal); C50.412 Malignant neoplasm of upper-outer quadrant of left female breast; E11.9 Type 2 diabetes mellitus without complications; I10 Essential (primary) hypertension; M19.90 Unspecified osteoarthritis, unspecified site; Z79.84 Long term (current) use of oral hypoglycemic drugs; Z79.899 Other long term (current) drug therapy; Z98.890 Other specified postprocedural states
CPT/HCPCS: 96413; A4216; J1642; J7050; J9355

== ENCOUNTER 2017-11-07 09:57 | Day surgery (SDC) | payer OTHER, SELFPAY ==
[2017-11-07] MEDS ORDERED: Sodium Chloride 0.9% 30 ML ONE (10:08)
[2017-11-07] MEDS ORDERED: SODIUM CHLORIDE 0.9% IVPB SCH (10:15)
[2017-11-07] MEDS ORDERED: TRASTUZUMAB IVPB SCH (10:15)
[2017-11-07 10:37] VITALS: BP 127/59; TEMP 97.8
== END 2017-11-07 12:00 | disposition home or self-care (01) ==
LOC: ONC/OP 09:57
PROVIDERS: ATTEND Internal Medicine Hematology & Oncology
DX: Z51.11 Encounter for antineoplastic chemotherapy (principal); C50.412 Malignant neoplasm of upper-outer quadrant of left female breast
CPT/HCPCS: 96413; A4216; J1642; J7050; J9355

== ENCOUNTER 2017-11-29 07:01 | Outpatient (CLI) | payer OTHER ==
[2017-11-29] MEDS ORDERED: Heparin 1,000 UNITS/ML VIAL ONE (09:00)
--- NOTE | 2017-11-29 10:45 | NM ---
MUGA SCAN: HISTORY: Malignant neoplasm of upper outer quadrant of the left female breast. RADIOPHARMACEUTICAL: 29 mCi Technetium 99m labeled RBCs injected intravenously. FINDINGS: The left ventricular ejection fraction measures 49%. No significant wall motion abnormalities are se en. IMPRESSION: Left ventricular ejection fraction is 49%. POS: [facility]
== END 2017-11-29 07:02 | disposition home or self-care (01) ==
LOC: NM 07:01
PROVIDERS: ATTEND Internal Medicine Hematology & Oncology
DX: Z08 Encounter for follow-up examination after completed treatment for malignant neoplasm (principal); C50.412 Malignant neoplasm of upper-outer quadrant of left female breast; Z79.899 Other long term (current) drug therapy
CPT/HCPCS: 78472; A9604; J1644

== ENCOUNTER 2018-01-24 06:43 | Day surgery (SDC) | payer OTHER ==
[2018-01-23 15:19] VITALS: BMI 53.7
--- NOTE | 2018-01-24 10:38 | OP ---
DATE OF PROCEDURE: 01/24/2018 SURGEON: Dr. Yosef Gao PROCEDURE: Esophagogastroduodenoscopy with biopsy and colonoscopy with biopsy. PREOPERATIVE DIAGNOSES: Chronic diarrhea and gastroesophageal reflux disease. OPERATIVE NOTE: Informed consent was obtained from the patient. The patient was sedated with total intravenous anesthesia. The bite block was placed and the endoscope was advanced easily to the secon d portion of the duodenum and retroflexion was performed in the stomach. The esophagus was normal. The GE junction was normal. The stomach had mild nonerosive gastritis in the antrum. Biopsies were obtained to rule out H. pylori. Retroflexed views in the stomach were normal. The pylorus and first and second portions of the duodenum were normal. Biopsies were taken from the duodenum to rule out celiac disease. The patient was turned around. Rectal exam was performed and was normal. The preparation quality wa s good. Colonoscope was advanced to the terminal ileum. The mucosa of the terminal ileum was normal . The ileocecal valve and appendiceal orifice were clearly identified. The colonic mucosa was ac l throughout. Random biopsies were taken from the ascending, descending and sigmoid colon to rule ou t microscopic colitis. The retroflexed views in the rectum were normal. IMPRESSION: 1. Nonerosive antral gastritis, biopsied to rule out Helicobacter pylori. 2. Otherwise normal esophagogastroduodenoscopy. Duodenal biopsies taken to rule out celiac disease. 3. Normal colonoscopy to the terminal ileum. Random biopsies were taken to rule out microscopic col itis. RECOMMENDATIONS: 1. Await histopathology. 2. Repeat colon cancer screening in 10 years. 3. Follow up in GI Clinic in 3 weeks.
[2018-01-24] MEDS ORDERED: Lidocaine 1% PF 5 ML VIAL ONE (15:02)
[2018-01-24] MEDS ORDERED: PROPOFOL 200 MG/20 ML VIAL ONE (15:02)
== END 2018-01-24 11:14 | disposition home or self-care (01) ==
LOC: SDC 06:43
PROVIDERS: ATTEND Internal Medicine Gastroenterology
PROC: 0DB98ZX Excision of Duodenum, Via Natural or Artificial Opening Endoscopic, Diagnostic (ICD-10-PCS; principal; 2018-01-24)
PROC: 0DBN8ZX Excision of Sigmoid Colon, Via Natural or Artificial Opening Endoscopic, Diagnostic (ICD-10-PCS; principal; 2018-01-24)
PROC: 0DBK8ZX Excision of Ascending Colon, Via Natural or Artificial Opening Endoscopic, Diagnostic (ICD-10-PCS; principal; 2018-01-24)
PROC: 0DBM8ZX Excision of Descending Colon, Via Natural or Artificial Opening Endoscopic, Diagnostic (ICD-10-PCS; principal; 2018-01-24)
PROC: 0DB68ZX Excision of Stomach, Via Natural or Artificial Opening Endoscopic, Diagnostic (ICD-10-PCS; principal; 2018-01-24)
DX: K29.50 Unspecified chronic gastritis without bleeding (principal); K52.9 Noninfective gastroenteritis and colitis, unspecified; K21.9 Gastro-esophageal reflux disease without esophagitis; Z79.52 Long term (current) use of systemic steroids; Z79.84 Long term (current) use of oral hypoglycemic drugs; Z79.899 Other long term (current) drug therapy
CPT/HCPCS: 88305; 88312; J2001; J2704

== ENCOUNTER 2019-01-19 01:33 | Emergency (ER) | payer SELFPAY ==
[2019-01-19] MEDS ORDERED: Fluorescein Opthalmic Strip ONE (01:47)
[2019-01-19] MEDS ORDERED: Proparacaine 0.5% Opth 15 ML BOT ONE (01:47)
== END 2019-01-19 02:08 | disposition home or self-care (01) ==
LOC: SCSER 01:33
DX: H11.31 Conjunctival hemorrhage, right eye (principal); F41.9 Anxiety disorder, unspecified; F32.9 Major depressive disorder, single episode, unspecified; I10 Essential (primary) hypertension; Z79.899 Other long term (current) drug therapy; Z79.84 Long term (current) use of oral hypoglycemic drugs
CPT/HCPCS: 99282

== ENCOUNTER 2019-10-26 09:58 | Outpatient (CLI) | payer MEDICARE, MEDICAID ==
--- NOTE | 2019-10-26 10:41 | MMO ---
Right Breast MAMMO Unilat Diag DDI RT+NELSON. CLINICAL HISTORY: Patient is 54 years old and is seen for diagnostic exam. The patient has the following family history of breast cancer: maternal grandmother, malignant (generic), GREAT. The patient has a history of left Mastectomy in 2017. VIEWS: The views performed were: right craniocaudal with tomosynthesis; right mediolateral oblique with tomosynthesis; and right mediolateral with tomosynthesis. FILMS COMPARED: The present examination has been compared to prior imaging studies performed at [facility] on 10/11/2016, 10/15/2016, 10/21/2017 and 10/22/2018. This study has been interpreted with the assistance of computer-aided detection. MAMMOGRAM FINDINGS: The breast is almost entirely fat. There are benign appearing calcifications in the right breast. There are no suspicious masses, suspicious calcifications, or new areas of architectural distortion. IMPRESSION: THERE IS NO MAMMOGRAPHIC EVIDENCE OF MALIGNANCY. A ROUTINE FOLLOW-UP MAMMOGRAM IN 1 YEAR IS RECOMMENDED. THE RESULTS OF THIS EXAM WERE SENT TO THE PATIENT. ACR BI-RADS Category 2 - Benign finding MAMMOGRAPHY NOTE: 1. A negative mammogram report should not delay a biopsy if a dominant of clinically suspicious mass is present. 2. Approximately 10% to 15% of breast cancers are not detected by mammography. 3. Adenosis and dense breasts may obscure an underlying neoplasm. Reported by: WILL ALEJANDRO MD Electonically Signed: [id number]
== END 2019-10-26 09:59 | disposition home or self-care (01) ==
LOC: BICMAMMO 09:58
PROVIDERS: ATTEND Internal Medicine
DX: Z08 Encounter for follow-up examination after completed treatment for malignant neoplasm (principal); Z85.3 Personal history of malignant neoplasm of breast
CPT/HCPCS: 77065; G0279

== ENCOUNTER 2019-12-13 19:00 | Outpatient (CLI) | payer MEDICARE, MEDICAID | END 2019-12-13 19:01 | disposition home or self-care (01) | LOC: SLEEPLAB 19:00 | PROVIDERS: ATTEND Internal Medicine Pulmonary Disease | DX: G47.33 Obstructive sleep apnea (adult) (pediatric) (principal); E66.9 Obesity, unspecified; R06.83 Snoring; G47.00 Insomnia, unspecified; F41.9 Anxiety disorder, unspecified; I10 Essential (primary) hypertension; Z68.43 Body mass index [BMI] 50.0-59.9, adult | CPT/HCPCS: 95811 ==

== ENCOUNTER 2020-10-26 10:05 | Outpatient (CLI) | payer MEDICARE, MEDICAID | END 2020-10-26 10:06 | disposition home or self-care (01) | LOC: BICMAMMO 10:05 | PROVIDERS: ATTEND Surgery | DX: Z08 Encounter for follow-up examination after completed treatment for malignant neoplasm (principal); Z85.3 Personal history of malignant neoplasm of breast | CPT/HCPCS: 77065; G0279 ==

== ENCOUNTER 2021-10-27 14:21 | Outpatient (CLI) | payer MEDICARE | END 2021-10-27 14:22 | disposition home or self-care (01) | LOC: BICMAMMO 14:21 | PROVIDERS: ATTEND Surgery | DX: Z08 Encounter for follow-up examination after completed treatment for malignant neoplasm (principal); Z85.3 Personal history of malignant neoplasm of breast; Z90.12 Acquired absence of left breast and nipple | CPT/HCPCS: 77065; G0279 ==

== ENCOUNTER 2022-02-09 14:56 | Outpatient (CLI) | payer MEDICARE | END 2022-02-09 14:57 | disposition home or self-care (01) | LOC: LABBT 14:56 | PROVIDERS: ATTEND Surgery | DX: Z20.822 Contact with and (suspected) exposure to COVID-19 (principal) | CPT/HCPCS: 87811 ==

== ENCOUNTER 2022-02-13 01:30 | Outpatient (CLI) | payer MEDICARE | END 2022-02-13 01:31 | disposition home or self-care (01) | LOC: DTY/OP 01:30 | PROVIDERS: ATTEND Surgery | DX: E66.01 Morbid (severe) obesity due to excess calories (principal) | CPT/HCPCS: 97802 ==

== ENCOUNTER 2022-06-05 15:00 | Outpatient (CLI) | payer MEDICARE ==
[2022-06-05 15:48] LABS: #Eosinphils 0.1 10x3/uL (0.0-0.5); #Monocytes 0.5 10x3/uL (0.0-1.1); #Neutrophils 5.6 10x3/uL (1.5-8.4); %Basophils 0.4 % (0.0-2.0); %Eosinophils 0.5 % (0.0-6.0); %Lymphocytes 36.3 % (18.0-47.0); %Monocytes 5.5 % (0.0-10.0); Hemoglobin 13.9 g/dL (12.0-15.5); Mean Corpuscular HGB CONC 33.3 g/dL (32.0-36.0); Mean Corpuscular Hemoglobin 31.2 pg (27.0-33.0); Mean Corpuscular Volume 93.7 fl (81.6-98.3); Mean Platelet Volume 9.6 fl (7.4-10.4); Platelet Count 289 10x3/uL (150-450); RBC Distribution Width 15.4 % (11.5-14.5); Red Blood Cell (RBC) Count 4.45 10x6/uL (3.90-5.03); White Blood Cell (WBC) Count 9.9 10x3/uL (3.5-10.5)
[2022-06-05 16:08] LABS: ALT (SGPT) 23 U/L (8-55); AST (SGOT) 18 U/L (5-34); Albumin 4.5 g/dL (3.5-5.0); Alkaline Phosphatase 66 U/L (40-110); Anion Gap 16 mmol/L (10-20); BUN (Urea Nitrogen) 20 mg/dL (9.8-20.1); Calc. Creatinine Clearance 0 mL/min (70-130); Calcium 9.6 mg/dL (7.8-10.44); Carbon Dioxide 25 mmol/L (22-29); Chloride 105 mmol/L (98-107); Estimated GFR 56; Globulin 3.1 g/dL (2.4-3.5); Glucose 128 mg/dL (70-105); Protein, Total 7.6 g/dL (6.0-8.3); Sodium 143 mmol/L (136-145)
[2022-06-05 20:08] LABS: Hemoglobin A1c 6.1 % (4.0-6.0)
== END 2022-06-05 15:01 | disposition home or self-care (01) ==
LOC: LABBT 15:00
PROVIDERS: ATTEND Surgery
DX: Z01.818 Encounter for other preprocedural examination (principal); E66.01 Morbid (severe) obesity due to excess calories
CPT/HCPCS: 71046; 80053; 83036; 85025; 93005; 93010

== ENCOUNTER 2022-06-05 15:30 | Inpatient (IN) | payer MEDICARE ==
[2022-06-08 13:11] VITALS: BMI 59.1
[2022-06-12] MEDS ORDERED: Bupivacaine/Epinephrine 0.25% 30 ML VIAL ONE (06:53)
[2022-06-12] MEDS ORDERED: Fentanyl 250 MCG/5 ML VIAL ONE ×2 (06:54→08:52)
[2022-06-12] MEDS ORDERED: SUGAMMADEX SODIUM 200 MG/2 ML VIAL ONE ×2 (06:55→07:37)
[2022-06-12] MEDS ORDERED: Ketamine 50 MG/ML (10ML VIAL) ONE (06:55)
[2022-06-12] MEDS ORDERED: Levofloxacin 500 mg/D5W 100 ml Premix Bag ONE (07:31)
[2022-06-12 07:36] LABS: SARS-CoV-2 NAA Rapid Test Not Detected (NotDetected)
[2022-06-12] MEDS ORDERED: Albuterol Sulfate HFA (OR ONLY) ONE (07:37)
[2022-06-12] MEDS ORDERED: Glycopyrrolate 0.2 MG/ML 5 ML SYRINGE ONE (07:45)
[2022-06-12] MEDS ORDERED: ePHEDrine 50 MG/ML VIAL ONE (07:45)
[2022-06-12] MEDS ORDERED: Succinylcholine Chloride 100 MG/5 ML SYRINGE FS ONE (07:45)
[2022-06-12] MEDS ORDERED: NEOSTIGMINE 3 MG/3 ML SYR 3 MG/3 ML SYRINGE ONE (07:45)
[2022-06-12] MEDS ORDERED: Rocuronium Bromide 10 MG/ML (10ML VIAL) ONE (07:45)
[2022-06-12] MEDS ORDERED: PROPOFOL 200 MG/20 ML VIAL ONE (07:45)
[2022-06-12] MEDS ORDERED: Lidocaine 1% PF 5 ML VIAL ONE (07:45)
[2022-06-12] MEDS ORDERED: PHENYLEPHRINE-NS 100 MCG/ML 10 ML SYRINGE ONE (07:45)
[2022-06-12] MEDS ORDERED: Dexamethasone 20 MG/5 ML VIAL ONE (07:45)
[2022-06-12] MEDS ORDERED: diphenhydrAMINE 25 MG CAP PO PRN (08:20)
[2022-06-12] MEDS ORDERED: Ondansetron HCl/PF 4 MG/2 ML Vial IVP PRN (08:20)
[2022-06-12] MEDS ORDERED: Naloxone HCl 0.4 mg/ml Vial IV PRN (08:20)
[2022-06-12] MEDS ORDERED: diphenhydrAMINE 50 MG/ML VIAL IVP PRN ×2 (08:20→09:31)
[2022-06-12] MEDS ORDERED: Promethazine HCl 25 MG/ML VIAL IVPB PRN (08:20)
[2022-06-12] MEDS ORDERED: FENTANYL 500 MCG/10 ML VIAL 2,000 MCG in Sodium Chloride 0.9% 60 ML IV PRN (08:20)
[2022-06-12] MEDS ORDERED: Ondansetron PF 4 MG/2 ML Vial IVP PRN ×2 (08:20→09:31)
[2022-06-12] MEDS ORDERED: diphenhydrAMINE 50 MG/ML VIAL IM PRN (08:20)
[2022-06-12] MEDS ORDERED: Promethazine HCl 25 MG/ML VIAL IM PRN ×3 (08:20→09:31)
[2022-06-12] MEDS ORDERED: Communication Order-Pharmacy FS SCH (08:30)
[2022-06-12] MEDS ORDERED: Promethazine HCl 25 MG/ML VIAL ONE (08:52)
[2022-06-12] MEDS ORDERED: Dextrose 50% Abboject 50 ML SYRINGE SLOW IVP PRN ×2 (09:31)
[2022-06-12] MEDS ORDERED: Amlodipine 10 MG TAB PO SCH ×2 (09:31→10:00)
[2022-06-12] MEDS ORDERED: Hydrocodone-Acetamin 15 ML UDCUP PO PRN (09:31)
[2022-06-12] MEDS ORDERED: Dextrose 5% in Water 1,000 ML IV PRN (09:31)
[2022-06-12] MEDS ORDERED: Gabapentin 300 MG CAP PO SCH (09:31)
[2022-06-12] MEDS ORDERED: Non-Formulary Item 1 EACH (Losartan/Hydrochlorothiazide [Losartan-Hctz 100-12.5 Mg Tab] 1 PO SCH (09:31)
[2022-06-12] MEDS ORDERED: hydrALAZINE 20 MG/ML VIAL SLOW IVP PRN (09:31)
[2022-06-12] MEDS: Enoxaparin Sodium 40 MG/0.4 ML SYRINGE SC SCH (16:44)
[2022-06-12] MEDS: Pantoprazole 40 MG VIAL IVP SCH (16:44)
[2022-06-12] MEDS: hydrALAZINE 25 MG TAB PO SCH ×2 (16:44→21:56)
[2022-06-12] MEDS: Gabapentin 300 MG CAP PO SCH ×2 (16:45→21:57)
[2022-06-12] MEDS: D5 1/2 NS w/20 mEq KCL 1,000 ML IV SCH ×2 (16:45→16:57)
[2022-06-12] MEDS: prednisoLONE 1% Ophth Susp 5 ml Bottle R EYE SCH (16:45)
[2022-06-12] MEDS: HumaLOG 300 UNITS/3 ML VIAL SC PRN (18:30)
[2022-06-12] MEDS ORDERED: DULoxetine 30 MG CAP PO SCH ×2 (21:00)
[2022-06-13] MEDS: HumaLOG 300 UNITS/3 ML VIAL SC PRN ×3 (00:18→11:41)
[2022-06-13] MEDS: D5 1/2 NS w/20 mEq KCL 1,000 ML IV SCH ×2 (00:18→08:33)
[2022-06-13 06:43] LABS: #Lymphocytes 1.3 thou/uL (1.20-3.40); #Monocytes 0.5 thou/uL (0.11-0.59); #Neutrophils 9.1 thou/uL (1.40-6.50); %Basophils 0.1 % (0.0-1.0); %Eosinophils 0.3 % (0.0-10.0); %Lymphocytes 11.7 % (21.0-51.0); %Monocytes 4.6 % (0.0-10.0); %Neutrophils 83.4 % (42.0-75.0); Hemoglobin 12.5 g/dL (12.0-16.0); Mean Corpuscular HGB CONC 32.2 g/dL (32.0-36.0); Mean Corpuscular Hemoglobin 31.9 pg (27.0-31.0); Mean Platelet Volume 7.8 fL (7.4-10.4); Platelet Count 257 10x3/uL (130-400); RBC Distribution Width 14.4 % (11.5-14.5); Red Blood Cell (RBC) Count 3.91 mill/uL (4.20-5.40); White Blood Cell (WBC) Count 10.9 10x3/uL (4.8-10.8)
[2022-06-13 07:02] LABS: Anion Gap 14 mmol/L (10-20); BUN (Urea Nitrogen) 13 mg/dL (9.8-20.1); Calc. Creatinine Clearance 154 mL/min (70-130); Calcium 8.3 mg/dL (7.8-10.44); Carbon Dioxide 19 mmol/L (22-29); Chloride 108 mmol/L (98-107); Estimated GFR 67; Glucose 240 mg/dL (70-105); Potassium 3.6 mmol/L (3.5-5.1); Sodium 137 mmol/L (136-145)
[2022-06-13] MEDS: Gabapentin 300 MG CAP PO SCH (08:31)
[2022-06-13] MEDS: Pantoprazole 40 MG VIAL IVP SCH (08:32)
[2022-06-13] MEDS: Enoxaparin Sodium 40 MG/0.4 ML SYRINGE SC SCH (08:32)
[2022-06-13] MEDS: prednisoLONE 1% Ophth Susp 5 ml Bottle R EYE SCH (08:32)
[2022-06-13] MEDS: hydrALAZINE 25 MG TAB PO SCH (08:33)
[2022-06-13] MEDS ORDERED: Hydrochlorothiazide 25 MG TAB PO SCH (09:00)
[2022-06-13] MEDS ORDERED: Losartan 25 MG TAB PO SCH (09:00)
[2022-06-13] MEDS ORDERED: Amlodipine 10 MG TAB PO SCH (09:00)
[2022-06-13 12:58] VITALS: BP 135/74; TEMP 98.2
== END 2022-06-13 12:47 | disposition home or self-care (01) | DRG 621 ==
LOC: SURG A 06-12 05:41 → EDSTATUS 06-12 15:30 → SURG A 06-12 16:45
PROVIDERS: ADMIT Surgery; ATTEND Surgery
PROC: 0DB64Z3 Excision of Stomach, Percutaneous Endoscopic Approach, Vertical (ICD-10-PCS; principal; 2022-06-12)
PROC: 8E0W4CZ Robotic Assisted Procedure of Trunk Region, Percutaneous Endoscopic Approach (ICD-10-PCS; 2022-06-12)
DX: E66.01 Morbid (severe) obesity due to excess calories (principal); Z68.43 Body mass index [BMI] 50.0-59.9, adult; I10 Essential (primary) hypertension; E78.5 Hyperlipidemia, unspecified; Z20.822 Contact with and (suspected) exposure to COVID-19; Z88.1 Allergy status to other antibiotic agents
CPT/HCPCS: 36415; 36416; 80048; 85025; 88307; C9113; J1100; J1650; J1815; J1956; J2550; J2704; J3010; J3480; J3490; U0002

== ENCOUNTER 2022-07-05 14:52 | Emergency (ER) | payer MEDICARE ==
[2022-07-05 17:24] LABS: #Basophils 0.1 thou/uL (0.0-0.2); #Lymphocytes 2.5 thou/uL (1.20-3.40); #Monocytes 0.6 thou/uL (0.11-0.59); %Basophils 0.7 % (0.0-1.0); %Eosinophils 0.5 % (0.0-10.0); %Lymphocytes 24.4 % (21.0-51.0); %Monocytes 5.6 % (0.0-10.0); %Neutrophils 68.9 % (42.0-75.0); Mean Corpuscular HGB CONC 31.4 g/dL (32.0-36.0); Mean Corpuscular Hemoglobin 31.2 pg (27.0-31.0); Mean Corpuscular Volume 99.3 fl (78.0-98.0); Platelet Count 290 10x3/uL (130-400); RBC Distribution Width 16.3 % (11.5-14.5); Red Blood Cell (RBC) Count 4.48 mill/uL (4.20-5.40); White Blood Cell (WBC) Count 10.1 10x3/uL (4.8-10.8)
[2022-07-05 17:47] LABS: ALT (SGPT) 13 U/L (8-55); AST (SGOT) 12 U/L (5-34); Albumin 3.8 g/dL (3.5-5.0); Alkaline Phosphatase 75 U/L (40-110); Anion Gap 22 mmol/L (10-20); BUN (Urea Nitrogen) 7 mg/dL (9.8-20.1); Bilirubin, Total 0.9 mg/dL (0.2-1.2); Calc. Creatinine Clearance 0 mL/min (70-130); Calcium 9.7 mg/dL (7.8-10.44); Carbon Dioxide 14 mmol/L (22-29); Chloride 112 mmol/L (98-107); Estimated GFR 52; Globulin 3.8 g/dL (2.4-3.5); Glucose 88 mg/dL (70-105); Lipase 35 U/L (8-78); Magnesium 1.7 mg/dL (1.6-2.6); Potassium 3.4 mmol/L (3.5-5.1); Protein, Total 7.6 g/dL (6.0-8.3); Sodium 145 mmol/L (136-145)
[2022-07-05] MEDS ORDERED: Ondansetron PF 4 MG/2 ML Vial ONE (18:33)
[2022-07-05] MEDS ORDERED: Prochlorperazine 10 MG/2 ML VIAL ONE (19:32)
== END 2022-07-05 20:40 | disposition home or self-care (01) ==
LOC: ERS 14:52
DX: E86.0 Dehydration (principal); E11.9 Type 2 diabetes mellitus without complications; I10 Essential (primary) hypertension
CPT/HCPCS: 36415; 80053; 83690; 83735; 85025; 96361; 96365; 96375; J0780; J2405

== ENCOUNTER 2022-07-07 13:34 | Inpatient (IN) | payer MEDICARE ==
[2022-07-07] MEDS ORDERED: Metoclopramide HCl 10 MG/2 ML VIAL ONE (14:03)
[2022-07-07] MEDS ORDERED: Morphine 4 MG/ML VIAL ONE (14:03)
[2022-07-07] MEDS ORDERED: Ondansetron ODT 4 MG TAB PO PRN (14:09)
[2022-07-07] MEDS ORDERED: HumaLOG 300 UNITS/3 ML VIAL SC PRN (14:09)
[2022-07-07] MEDS ORDERED: hydrALAZINE 20 MG/ML VIAL SLOW IVP PRN (14:09)
[2022-07-07] MEDS ORDERED: TETANUS, DIPHTHERIA TOX,ADULT (TDVAX) 0.5 ML VIAL IM ONE (14:09)
[2022-07-07] MEDS ORDERED: Dextrose 5% in Water 1,000 ML IV PRN (14:09)
[2022-07-07] MEDS ORDERED: Dextrose 50% Abboject 50 ML SYRINGE SLOW IVP PRN (14:09)
[2022-07-07] MEDS ORDERED: Lactated Ringer's 1,000 ML IV SCH (14:15)
[2022-07-07 15:00] LABS: #Eosinphils 0.1 thou/uL (0.0-0.7); #Lymphocytes 2.1 thou/uL (1.20-3.40); #Monocytes 0.6 thou/uL (0.11-0.59); #Neutrophils 7.5 thou/uL (1.40-6.50); %Basophils 0.4 % (0.0-1.0); %Eosinophils 0.6 % (0.0-10.0); %Lymphocytes 20.3 % (21.0-51.0); %Monocytes 5.4 % (0.0-10.0); %Neutrophils 73.2 % (42.0-75.0); Hemoglobin 13.7 g/dL (12.0-16.0); Mean Corpuscular HGB CONC 33.9 g/dL (32.0-36.0); Mean Corpuscular Hemoglobin 34.1 pg (27.0-31.0); Platelet Count 282 10x3/uL (130-400); RBC Distribution Width 16.6 % (11.5-14.5); Red Blood Cell (RBC) Count 4.03 mill/uL (4.20-5.40); White Blood Cell (WBC) Count 10.2 10x3/uL (4.8-10.8)
[2022-07-07 15:21] LABS: ALT (SGPT) 13 U/L (8-55); AST (SGOT) 11 U/L (5-34); Albumin 3.6 g/dL (3.5-5.0); Alkaline Phosphatase 72 U/L (40-110); Anion Gap 23 mmol/L (10-20); BUN (Urea Nitrogen) 7 mg/dL (9.8-20.1); Bilirubin, Total 0.9 mg/dL (0.2-1.2); Calc. Creatinine Clearance 0 mL/min (70-130); Calcium 9.5 mg/dL (7.8-10.44); Carbon Dioxide 15 mmol/L (22-29); Chloride 113 mmol/L (98-107); Estimated GFR 50; Globulin 3.5 g/dL (2.4-3.5); Glucose 125 mg/dL (70-105); Magnesium 1.6 mg/dL (1.6-2.6); Potassium 3.2 mmol/L (3.5-5.1); Protein, Total 7.1 g/dL (6.0-8.3); Sodium 148 mmol/L (136-145)
[2022-07-07 15:35] VITALS: BMI 55.4
[2022-07-07] MEDS: Ondansetron PF 4 MG/2 ML Vial IVP PRN (18:30)
[2022-07-07] MEDS: Potassium Chloride 20 MEQ in Lactated Ringer's 1,000 ML IV SCH (18:30)
[2022-07-07] MEDS: DULoxetine 30 MG CAP PO SCH (21:01)
[2022-07-07] MEDS: hydrALAZINE 25 MG TAB PO SCH (21:02)
[2022-07-08] MEDS: Ondansetron PF 4 MG/2 ML Vial IVP PRN ×2 (00:36→06:37)
[2022-07-08] MEDS: Potassium Chloride 20 MEQ in Lactated Ringer's 1,000 ML IV SCH ×4 (01:14→17:51)
[2022-07-08 06:35] LABS: ALT (SGPT) 13 U/L (8-55); AST (SGOT) 11 U/L (5-34); Albumin 3.6 g/dL (3.5-5.0); Alkaline Phosphatase 69 U/L (40-110); Anion Gap 18 mmol/L (10-20); BUN (Urea Nitrogen) 6 mg/dL (9.8-20.1); Bilirubin, Total 0.8 mg/dL (0.2-1.2); Calc. Creatinine Clearance 123 mL/min (70-130); Calcium 9.4 mg/dL (7.8-10.44); Carbon Dioxide 17 mmol/L (22-29); Chloride 117 mmol/L (98-107); Estimated GFR 56; Globulin 3.5 g/dL (2.4-3.5); Glucose 81 mg/dL (70-105); Potassium 3.8 mmol/L (3.5-5.1); Protein, Total 7.1 g/dL (6.0-8.3); Sodium 148 mmol/L (136-145)
[2022-07-08] MEDS ORDERED: Pantoprazole 40 MG VIAL IVP SCH (09:00)
[2022-07-08] MEDS ORDERED: Succinylcholine Chloride 100 MG/5 ML SYRINGE FS ONE (10:23)
[2022-07-08] MEDS ORDERED: PROPOFOL 200 MG/20 ML VIAL ONE (10:23)
[2022-07-08] MEDS ORDERED: Dexamethasone 20 MG/5 ML VIAL ONE (10:23)
[2022-07-08] MEDS ORDERED: Lidocaine 1% PF 5 ML VIAL ONE (10:23)
[2022-07-08] MEDS ORDERED: Ondansetron PF 4 MG/2 ML Vial ONE (10:23)
[2022-07-08] MEDS ORDERED: Metoclopramide HCl 10 MG/2 ML VIAL ONE (10:23)
[2022-07-08] MEDS: Amlodipine 10 MG TAB PO SCH (10:49)
[2022-07-08] MEDS: hydrALAZINE 25 MG TAB PO SCH ×2 (10:49→20:32)
[2022-07-08] MEDS: Losartan 25 MG TAB PO SCH (10:49)
[2022-07-08] MEDS: Hydrochlorothiazide 25 MG TAB PO SCH (10:49)
[2022-07-08] MEDS ORDERED: Promethazine HCl 25 MG/ML VIAL IM PRN (11:10)
[2022-07-08] MEDS: prednisoLONE 1% Ophth Susp 5 ml Bottle R EYE SCH (14:06)
[2022-07-08] MEDS: DULoxetine 30 MG CAP PO SCH (20:29)
[2022-07-08] MEDS: Pantoprazole 40 MG VIAL IVP SCH (20:31)
[2022-07-08] MEDS: Ondansetron PF 4 MG/2 ML Vial IVP SCH (20:31)
[2022-07-09] MEDS: Potassium Chloride 20 MEQ in Lactated Ringer's 1,000 ML IV SCH ×6 (01:31→22:10)
[2022-07-09] MEDS: Ondansetron PF 4 MG/2 ML Vial IVP SCH ×2 (09:01→20:52)
[2022-07-09] MEDS: Amlodipine 10 MG TAB PO SCH ×2 (09:03→09:19)
[2022-07-09] MEDS: Pantoprazole 40 MG VIAL IVP SCH ×2 (09:03→20:52)
[2022-07-09] MEDS: Hydrochlorothiazide 25 MG TAB PO SCH ×2 (09:03→09:20)
[2022-07-09] MEDS: Losartan 25 MG TAB PO SCH ×2 (09:03→09:20)
[2022-07-09] MEDS: hydrALAZINE 25 MG TAB PO SCH ×3 (09:04→20:53)
[2022-07-09] MEDS: prednisoLONE 1% Ophth Susp 5 ml Bottle R EYE SCH (09:20)
[2022-07-09] MEDS ORDERED: Milk Of Magnesia 30 ML UDCUP PO ONE (11:05)
[2022-07-09] MEDS: DULoxetine 30 MG CAP PO SCH (20:53)
[2022-07-10] MEDS: Potassium Chloride 20 MEQ in Lactated Ringer's 1,000 ML IV SCH ×4 (03:05→17:30)
[2022-07-10] MEDS ORDERED: Iopamidol-370 76% 500 ML 1 ML ONE (08:35)
[2022-07-10] MEDS: Amlodipine 10 MG TAB PO SCH (08:54)
[2022-07-10] MEDS: prednisoLONE 1% Ophth Susp 5 ml Bottle R EYE SCH (08:54)
[2022-07-10] MEDS: hydrALAZINE 25 MG TAB PO SCH ×2 (08:54→21:26)
[2022-07-10] MEDS: Losartan 25 MG TAB PO SCH (08:54)
[2022-07-10] MEDS: Hydrochlorothiazide 25 MG TAB PO SCH (08:54)
[2022-07-10] MEDS: Pantoprazole 40 MG VIAL IVP SCH ×2 (08:55→21:25)
[2022-07-10] MEDS: Ondansetron PF 4 MG/2 ML Vial IVP SCH ×2 (08:55→21:23)
[2022-07-10] MEDS ORDERED: Promethazine HCl 25 MG/ML VIAL IM SCH (11:15)
[2022-07-10 14:15] LABS: Bacteria/HPF 2+ HPF (None Seen); Bilirubin Negative (Negative); Blood, Urine Negative (Negative); CAUTI Indications for Culture Dysuria,urgency,freq; Clarity Clear (Clear); Glucose, Urine (Dipstick) Normal (Negative); Ketone, Urine 40 mg/dL (Negative); Leukocyte Negative Leu/uL (Negative); Nitrite Negative (Negative); Protein, Urine (Dipstick) 10 mg/dL (Neg-Trace); RBC/HPF 0-3 HPF (0-3); Squamous Epithelial 0-3 HPF (0-3); Urine Culture Reflex No No; Urobilinogen Normal mg/dL (Less than 2); WBC/HPF 0-3 HPF (0-3); pH, Urine 5.5 (5.0-9.0)
[2022-07-10 16:43] LABS: #Basophils 0.1 thou/uL (0.0-0.2); #Eosinphils 0.1 thou/uL (0.0-0.7); #Lymphocytes 2.6 thou/uL (1.20-3.40); #Monocytes 0.6 thou/uL (0.11-0.59); #Neutrophils 3.7 thou/uL (1.40-6.50); %Basophils 1.1 % (0.0-1.0); %Eosinophils 0.8 % (0.0-10.0); %Lymphocytes 36.5 % (21.0-51.0); %Neutrophils 52.6 % (42.0-75.0); Hemoglobin 12.2 g/dL (12.0-16.0); Mean Corpuscular HGB CONC 31.1 g/dL (32.0-36.0); Mean Corpuscular Hemoglobin 31.4 pg (27.0-31.0); Mean Platelet Volume 9.9 fL (7.4-10.4); Platelet Count 183 10x3/uL (130-400); RBC Distribution Width 17.6 % (11.5-14.5); Red Blood Cell (RBC) Count 3.89 mill/uL (4.20-5.40); White Blood Cell (WBC) Count 7.1 10x3/uL (4.8-10.8)
[2022-07-10 17:01] LABS: Anion Gap 14 mmol/L (10-20); BUN (Urea Nitrogen) 6 mg/dL (9.8-20.1); Calc. Creatinine Clearance 133 mL/min (70-130); Calcium 8.7 mg/dL (7.8-10.44); Carbon Dioxide 18 mmol/L (22-29); Chloride 113 mmol/L (98-107); Estimated GFR 61; Glucose 141 mg/dL (70-105); Potassium 4.1 mmol/L (3.5-5.1); Sodium 141 mmol/L (136-145)
[2022-07-10 17:30] LABS: Magnesium 1.4 mg/dL (1.6-2.6)
[2022-07-10 17:38] LABS: Phosphorus 1.1 mg/dL (2.3-4.7)
[2022-07-10] MEDS ORDERED: Potassium Phosphate 30 MMOL in Sodium Chloride 0.9% 250 ML 250 ML IVPB SCH (18:00)
[2022-07-10] MEDS ORDERED: Magnesium 2 GM/50 ML(in water) 2 GM in Premix Bag 1 BAG IVPB SCH (18:00)
[2022-07-10] MEDS: DULoxetine 30 MG CAP PO SCH (21:23)
[2022-07-11] MEDS: Potassium Chloride 20 MEQ in Lactated Ringer's 1,000 ML IV SCH (02:17)
[2022-07-11] MEDS ORDERED: Ondansetron PF 4 MG/2 ML Vial IVP PRN (09:16)
[2022-07-11] MEDS: prednisoLONE 1% Ophth Susp 5 ml Bottle R EYE SCH (10:05)
[2022-07-11] MEDS: K-Phos Neutral 250 MG TAB PO SCH ×3 (10:08→17:26)
[2022-07-11] MEDS: Pantoprazole 40 MG VIAL IVP SCH ×2 (10:09→21:58)
[2022-07-11] MEDS: Amlodipine 10 MG TAB PO SCH (10:34)
[2022-07-11] MEDS: Hydrochlorothiazide 25 MG TAB PO SCH (10:34)
[2022-07-11] MEDS: hydrALAZINE 25 MG TAB PO SCH (10:34)
[2022-07-11] MEDS: Losartan 25 MG TAB PO SCH (10:35)
[2022-07-11] MEDS: Ondansetron PF 4 MG/2 ML Vial IVP SCH (10:35)
[2022-07-11] MEDS ORDERED: HYDROcodone/Acetaminophen 7.5/325 mg Tablet PO PRN (12:32)
[2022-07-11 13:00] LABS: Phosphorus 2.5 mg/dL (2.3-4.7)
[2022-07-11] MEDS ORDERED: Acetaminophen 325 MG TAB PO PRN (15:51)
[2022-07-11] MEDS ORDERED: traMADol HCl 50 MG TAB PO PRN (15:52)
[2022-07-11] MEDS: DULoxetine 30 MG CAP PO SCH (21:57)
[2022-07-11] MEDS: Metoprolol Tartrate 50 MG TAB PO SCH (21:57)
[2022-07-12] MEDS: Metoprolol Tartrate 50 MG TAB PO SCH ×2 (08:58→20:58)
[2022-07-12] MEDS: Pantoprazole 40 MG VIAL IVP SCH (08:58)
[2022-07-12] MEDS: K-Phos Neutral 250 MG TAB PO SCH ×3 (08:58→16:55)
[2022-07-12] MEDS: prednisoLONE 1% Ophth Susp 5 ml Bottle R EYE SCH (10:13)
[2022-07-12] MEDS: DULoxetine 30 MG CAP PO SCH (20:59)
[2022-07-13] MEDS: prednisoLONE 1% Ophth Susp 5 ml Bottle R EYE SCH (08:38)
[2022-07-13] MEDS: Metoprolol Tartrate 50 MG TAB PO SCH (08:39)
[2022-07-13] MEDS: K-Phos Neutral 250 MG TAB PO SCH ×2 (08:39→11:40)
[2022-07-13 12:15] VITALS: BP 130/60; TEMP 98.2
== END 2022-07-13 13:45 | disposition home health service (06) | DRG 392 ==
LOC: ERS 13:34 → SJJU 14:07
PROVIDERS: ADMIT Specialist; ATTEND Specialist
PROC: 0D758ZZ Dilation of Esophagus, Via Natural or Artificial Opening Endoscopic (ICD-10-PCS; principal; 2022-07-08)
PROC: 0DB78ZX Excision of Stomach, Pylorus, Via Natural or Artificial Opening Endoscopic, Diagnostic (ICD-10-PCS; 2022-07-08)
DX: K91.0 Vomiting following gastrointestinal surgery (principal); Z68.44 Body mass index [BMI] 60.0-69.9, adult; E86.0 Dehydration; Z20.822 Contact with and (suspected) exposure to COVID-19; I10 Essential (primary) hypertension; E11.9 Type 2 diabetes mellitus without complications; F41.9 Anxiety disorder, unspecified; F32.9 Major depressive disorder, single episode, unspecified; E88.81 Metabolic syndrome and other insulin resistance; R13.10 Dysphagia, unspecified; K21.00 Gastro-esophageal reflux disease with esophagitis, without bleeding; E83.42 Hypomagnesemia; Y83.8 Other surgical procedures as the cause of abnormal reaction of the patient, or of later complication, without mention of misadventure at the time of the procedure; E66.01 Morbid (severe) obesity due to excess calories; Z88.1 Allergy status to other antibiotic agents; Z79.899 Other long term (current) drug therapy; Z88.5 Allergy status to narcotic agent; Z90.49 Acquired absence of other specified parts of digestive tract; Z98.84 Bariatric surgery status; Z99.89 Dependence on other enabling machines and devices
CPT/HCPCS: 36415; 36416; 71045; 74019; 74177; 80048; 80053; 81001; 82550; 83690; 83735; 84100; 85025; 87324; 87449; 88305; 96361; 96365; 96374; 96375; C9113; J0780; J1100; J1650; J1815; J2270; J2405; J2550; J2704; J2765; J3411; J3475; J3480; J7050; J7120; Q9967; U0003; U0005